=== PATIENT | female | born 1980 | race Caucasian/White ===

== ENCOUNTER 2017-01-15 08:10 | Emergency (ER) | payer OTHER ==
[~2017-01-15] VITALS: Ht 172.7 cm; Wt 110.4 kg
[~2017-01-15 08:10] MED LIST: ANT25 PO; HYDROXYCUT PO; MULT-506 PO
[2017-01-15 08:11] VITALS: TEMP 36.5; Ht 172.7 cm; Wt 110.4 kg
[2017-01-15] MEDS ORDERED: SODIUM CHLORIDE 0.9% 1000ML 1,000 ML IV STA (08:30)
[2017-01-15 08:40] LABS: BASO % 0.4 %; BASO ABS # 0.04 K/uL (0-0.2); COMPLETE YES; EOS % 1.3 %; HEMATOCRIT 39.8 % (37-47); IG% 0.5 %; LYMPH % 22.6 %; LYMPH ABS # 2.11 K/uL (1.2-3.4); MEAN CELL VOLUME 87.5 fL (80-100); MEAN CORPUSCULAR HEMOGLOBIN 28.4 pg (25-34); MEAN CORPUSCULAR HGB CONC 32.4 g/dl (32-36); MEAN PLATELET VOLUME 9.4 fL (7.4-10.4); MONO % 8.7 %; NEUT % 66.5 %; PLATELET COUNT 368 K/uL (130-400); RED BLOOD COUNT 4.55 M/uL (4.2-5.4); WHITE BLOOD COUNT 9.32 K/uL (4.8-10.8)
[2017-01-15 08:46] LABS: URINE APPEARANCE TURBID (CLEAR); URINE BILIRUBIN NEG (NEG); URINE COLOR DK YELLOW; URINE EPITHELIAL CELL AUTO >30 /lpf (0-5); URINE NITRITE NEG (NEG); URINE SPECIFIC GRAVITY 1.041 (1.000-1.030); UROBILINOGEN NEG (NEG)
[2017-01-15 08:56] LABS: MANUAL MICROSCOPIC REQUIRED? NO; REVIEW REQ? YES
[2017-01-15 08:58] LABS: BUN/CREATININE RATIO 10.5 (10-20); CALCIUM 8.5 mg/dl (8.5-10.1); CREATININE 0.76 mg/dl (0.60-1.20); POTASSIUM 3.7 mmol/L (3.5-5.1)
--- NOTE | 2017-01-15 09:58 | DIAGNOSTIC IMAGING REPORT ---
ABDOMINAL ULTRASOUND, RIGHT UPPER QUADRANT HISTORY: Generalized abdominal pain.. COMPARISON: None. FINDINGS: Pancreas: The head of the pancreas appears to be unremarkable. The body and tail are obscured by overlying bowel gas. Liver: Unremarkable. Gallbladder: The gallbladder is completely filled with sludge and small stones. Gallbladder wall is borderline thickened measuring up to 3 mm. CBD: 5 mm. Right kidney: No hydronephrosis. IMPRESSION: The gallbladder is completely filled with sludge and small stones. There is borderline gallbladder wall thickening. This could represent acute cholecystitis in the appropriate clinical setting. Electronically signed by: Parmjit Vazquez M.D. 01/15/2017 9:57 AM Dictated Date/Time: 01/15/2017 9:54 AM
--- NOTE | 2017-01-15 10:10 | EMERGENCY ROOM VISIT NOTE ---
History First contact with patient: 08:14 Chief Complaint: ABDOMINAL PAIN Stated Complaint: RIGHT UPPER QUAD PAIN-RADIATES TO BACK Nursing Triage Summary: pt reports having intermittent upper right quad pain last several months episode of pain awoke pt at 0400am pt tried antacid with minimal relief nausea, no emesis pt has had diarrhea with episodes but none today pt reports feeling bloated "I think Its my gallbladder" History of Present Illness The patient is a 36 year old female who presents to the Emergency Room with complaints of right upper abdominal pain that has been ongoing and intermittent for the past 6 months, but got worse since last night. She reports the pain is sharp and squeezing, radiates into her right upper back/shoulder blade area, with associated nausea but no vomiting. She states she took a Zantac and Tylenol as morning, which has somewhat alleviated her pain. She does note some loose stools over the past few weeks, no watery or foul-smelling diarrhea. She denies any fever/chills, chest pain, shortness of breath, dizziness or syncope, vomiting blood, bloody stools, urinary symptoms. She denies any previous history of gallbladder disease. Review of Systems GENERAL: Denies fevers, chills, malaise, fatigue, unintentional weight changes. HEENT: Denies dizziness, visual problems, hearing loss, tinnitus. Denies difficulty swallowing or oral lesions. PULMONARY: Denies cough, shortness of breath, sputum production or hemoptysis. CARDIOVASCULAR: Denies chest pain, palpitations, dyspnea on exertion, orthopnea or peripheral edema. GASTROINTESTINAL: + Abdominal pain, nausea, diarrhea. Denies constipation, vomiting. GENITOURINARY: Denies dysuria, frequency, urgency or nocturia. NEUROLOGIC: Denies history of epilepsy, CVA, TIA or chronic headaches. MUSCULOSKELETAL: Denies history of joint tenderness/swelling. SKIN: Denies rashes or lesions. PSYCHIATRIC: Denies history of depression or mental illness. ENDOCRINE: Denies history of diabetes, thyroid disorders, abnormal hair growth or sexual dysfunction. Past Medical/Surgical History Medical Problems: (1) No chronic problems Social History Smoking Status: Never Smoker Marital Status: Housing Status: lives with family Occupation Status: employed Current/Historical Medications Scheduled Multivitamin (Multivitamin), 1 TAB PO DAILY Allergies Coded Allergies: No Known Allergies (Unverified , 01/15/17) Physical Exam Vital Signs Date Time Temp Pulse Resp B/P Pulse Ox O2 Delivery O2 Flow Rate FiO2 01/15/17 12:09 57 18 139/85 95 Room Air 01/15/17 09:30 57 16 135/78 95 01/15/17 08:11 36.5 70 20 143/77 100 Room Air Physical Exam CONSTITUTIONAL: No acute distress. Well appearing and well nourished. Alert and oriented X 4 with normal affect. HEENT: Normocephalic, atraumatic. Pupils equal, round and reactive to light, EOMI. TMs normal. Pharynx normal. Moist mucous membranes. NECK: Supple, full active range of motion without discomfort. RESPIRATORY: Clear to auscultation bilaterally with no wheezing, crackles, rhonchi or stridor. Equal expansion bilaterally. CARDIOVASCULAR: Regular rate and rhythm with no murmurs, rubs or gallops. Normal peripheral perfusion. No edema. GASTROINTESTINAL: Soft, nondistended. Obese abdomen. Mild tenderness in the epigastric and right upper quadrant regions. Negative Shafer sign. Bowel sounds present in all quadrants. MUSCULOSKELETAL: Full range of motion of all joints without discomfort. INTEGUMENTARY: No rash or other significant dermatologic conditions noted. NEUROLOGIC: Cranial nerves II-XII grossly intact. No focal neurologic deficits noted. Medical Decision & Procedures ER Provider Diagnostic Interpretation: CHEST 2 VIEWS ROUTINE HISTORY: Upper quadrant abdominal pain. COMPARISON: None. FINDINGS: Linear densities within the right middle lobe consistent with scarring or subsegmental atelectasis. Otherwise, lungs are clear. No pleural effusions. No pneumothorax. The heart is normal in size. IMPRESSION: Right middle lobe scarring or atelectasis. Otherwise, no acute process within the chest. ----- ABDOMINAL ULTRASOUND, RIGHT UPPER QUADRANT HISTORY: Generalized abdominal pain.. COMPARISON: None. FINDINGS: Pancreas: The head of the pancreas appears to be unremarkable. The body and tail are obscured by overlying bowel gas. Liver: Unremarkable. Gallbladder: The gallbladder is completely filled with sludge and small stones. Gallbladder wall is borderline thickened measuring up to 3 mm. CBD: 5 mm. Right kidney: No hydronephrosis. IMPRESSION: The gallbladder is completely filled with sludge and small stones. There is borderline gallbladder wall thickening. This could represent acute cholecystitis in the appropriate clinical setting. Laboratory Results 01/15/17 08:30 Red Blood Count 4.55, Mean Corpuscular Volume 87.5, Mean Corpuscular Hemoglobin 28.4, Mean Corpuscular Hemoglobin Concent 32.4, Mean Platelet Volume 9.4, Neutrophils (%) (Auto) 66.5, Lymphocytes (%) (Auto) 22.6, Monocytes (%) (Auto) 8.7, Eosinophils (%) (Auto) 1.3, Basophils (%) (Auto) 0.4, Neutrophils # (Auto) 6.19, Lymphocytes # (Auto) 2.11, Monocytes # (Auto) 0.81, Eosinophils # (Auto) 0.12, Basophils # (Auto) 0.04 01/15/17 08:30 Test 01/15/17 08:20 01/15/17 08:30 Urine Color DK YELLOW Urine Appearance TURBID (CLEAR) Urine pH 5.0 (4.5-7.5) Urine Specific [place] 1.041 (1.000-1.030) Urine Protein NEG (NEG) Urine Glucose (UA) NEG (NEG) Urine Ketones NEG (NEG) Urine Occult Blood 1+ (NEG) Urine Nitrite NEG (NEG) Urine Bilirubin NEG (NEG) Urine Urobilinogen NEG (NEG) Urine Leukocyte Esterase NEG (NEG) Urine WBC (Auto) 1-5 /hpf (0-5) Urine RBC (Auto) 0-4 /hpf (0-4) Urine Hyaline Casts (Auto) 1-5 /lpf (0-5) Urine Epithelial Cells (Auto) >30 /lpf (0-5) Urine Bacteria (Auto) 1+ (NEG) Urine Crystals AMORPHOUS SEDIMENT (NONE Urine Test NEG (NEG) White Blood Count 9.32 K/uL (4.8-10.8) Red Blood Count 4.55 M/uL (4.2-5.4) Hemoglobin 12.9 g/dL (12.0-16.0) Hematocrit 39.8 % (37-47) Mean Corpuscular Volume 87.5 fL (80-100) Mean Corpuscular Hemoglobin 28.4 pg (25-34) Mean Corpuscular Hemoglobin Concent 32.4 g/dl (32-36) Platelet Count 368 K/uL (130-400) Mean Platelet Volume 9.4 fL (7.4-10.4) Neutrophils (%) (Auto) 66.5 % Lymphocytes (%) (Auto) 22.6 % Monocytes (%) (Auto) 8.7 % Eosinophils (%) (Auto) 1.3 % Basophils (%) (Auto) 0.4 % Neutrophils # (Auto) 6.19 K/uL (1.4-6.5) Lymphocytes # (Auto) 2.11 K/uL (1.2-3.4) Monocytes # (Auto) 0.81 K/uL (0.11-0.59) Eosinophils # (Auto) 0.12 K/uL (0-0.5) Basophils # (Auto) 0.04 K/uL (0-0.2) RDW Standard Deviation 44.0 fL (36.4-46.3) RDW Coefficient of Variation 13.7 % (11.5-14.5) Immature Granulocyte % (Auto) 0.5 % Immature Granulocyte # (Auto) 0.05 K/uL (0.00-0.02) Anion Gap 5.0 mmol/L (3-11) Est Creatinine Clear Calc Drug Dose 134.5 ml/min Estimated GFR () 117.8 Estimated GFR (Non- 101.6 BUN/Creatinine Ratio 10.5 (10-20) Calcium Level 8.5 mg/dl (8.5-10.1) Total Bilirubin 0.4 mg/dl (0.2-1) Direct Bilirubin 0.1 mg/dl (0-0.2) Aspartate Amino Transf (AST/SGOT) 27 U/L (15-37) Alanine Aminotransferase (ALT/SGPT) 58 U/L (12-78) Alkaline Phosphatase 91 U/L (45-117) Total Protein 7.7 gm/dl (6.4-8.2) Albumin 3.7 gm/dl (3.4-5.0) Lipase 158 U/L (73-393) Medications Administered Medications (Trade) Dose Ordered Sig/Camila Route Start Time Stop Time Status Last Admin Dose Admin Sodium Chloride (Nss 1000ml) 1,000 ml @ 999 mls/hr Q1H1M STAT IV 01/15/17 08:30 01/15/17 09:30 DC 01/15/17 09:29 999 MLS/HR Medical Decision CC: Patient presenting with complaint of right upper quadrant pain. Interpretation of Labs: Unremarkable, no leukocytosis, normal renal function, normal liver enzymes, no significant electrolyte abnormalities. Differential Diagnosis: Includes, but not limited to gastritis, GERD, cholecystitis, cholelithiasis, pancreatitis. Summary: Patient was evaluated at bedside, history of physical exam performed. She is alert and pleasant, no acute distress, well-hydrated. She describes right upper quadrant and epigastric pain that radiates into her right shoulder blade area nausea. She does have mild tenderness with palpation in the epigastric right upper quadrant abdomen but no positive Shafer sign. Orders were placed at bedside for labs, urinalysis, IV fluids, ultrasound to evaluate for gallbladder disease. Patient was offered something for pain, however she states her pain is currently well controlled and declines any pain medications. Patient discussed with Dr. Chand, who agrees with my assessment and plan. Right upper quadrant ultrasound does show significant gallbladder sludge with stones and mild wall thickening, however patient's clinical condition and lab findings do not support acute cholecystitis at this time. Patient reassessed multiple times throughout ED stay, her pain remained well controlled and vitals stable. Patient was instructed to follow-up with her PCP for general surgery referral to further evaluate her gallbladder. She verbalized understanding and is agreeable to discharge. Impression Primary Impression: Gall bladder disease Departure Information Dispostion Home / Self-Care Condition GOOD Referrals Lorenzo Ortiz M.D. (PCP) Patient Instructions ED Gallbladder Infec [facility], [facility] Additional Instructions Follow-up with your PCP. Call today or tomorrow to arrange a follow-up appointment. You should discuss with them about being referred to a general surgeon to discuss management of your gallbladder disease. You may continue to take Tylenol as needed for pain. Please return to the ER for worsening symptoms, including severe abdominal pain , persistent vomiting especially vomiting blood or bile, fevers/chills/feeling ill, or any other concerns.
--- NOTE | 2017-01-15 10:23 | DIAGNOSTIC IMAGING REPORT ---
CHEST 2 VIEWS ROUTINE HISTORY: Upper quadrant abdominal pain. COMPARISON: None. FINDINGS: Linear densities within the right middle lobe consistent with scarring or subsegmental atelectasis. Otherwise, lungs are clear. No pleural effusions. No pneumothorax. The heart is normal in size. IMPRESSION: Right middle lobe scarring or atelectasis. Otherwise, no acute process within the chest. Electronically signed by: Parmjit Vazquez M.D. 01/15/2017 10:22 AM Dictated Date/Time: 01/15/2017 10:20 AM
[2017-01-15 12:09] VITALS: BP 139/85; PULSE 57; O2SAT 95
== END 2017-01-15 12:35 | disposition home or self-care (01) ==
LOC: C.EDB 08:11 → C.EDA 12:35
DX: K82.9 Disease of gallbladder, unspecified (principal)

== ENCOUNTER 2017-04-20 15:41 | Emergency (ER) | payer OTHER ==
[~2017-04-20] VITALS: Ht 174 cm; Wt 108.0 kg
[~2017-04-20 15:41] MED LIST changes: -ANT25 PO; -HYDROXYCUT PO
[2017-04-20 15:44] VITALS: TEMP 36.8; Ht 174 cm; Wt 108.0 kg
[2017-04-20] MEDS ORDERED: CEFTRIAXONE SOD INJ 1 GM ADDVIAL IV STA (17:34)
[2017-04-20] MEDS ORDERED: IBUP-1050 PO (17:45)
[2017-04-20 18:15] LABS: BASO % 0.1 %; BASO ABS # 0.02 K/uL (0-0.2); COMPLETE YES; EOS % 0.3 %; HEMATOCRIT 35.1 % (37-47); IG% 0.4 %; LYMPH % 12.3 %; LYMPH ABS # 1.95 K/uL (1.2-3.4); MEAN CELL VOLUME 84.6 fL (80-100); MEAN CORPUSCULAR HEMOGLOBIN 28.9 pg (25-34); MEAN CORPUSCULAR HGB CONC 34.2 g/dl (32-36); MEAN PLATELET VOLUME 9.6 fL (7.4-10.4); MONO % 11.1 %; NEUT % 75.8 %; PLATELET COUNT 290 K/uL (130-400); RED BLOOD COUNT 4.15 M/uL (4.2-5.4); WHITE BLOOD COUNT 15.83 K/uL (4.8-10.8)
--- NOTE | 2017-04-20 18:21 | DIAGNOSTIC IMAGING REPORT ---
LEFT KNEE 2 VIEWS HISTORY: Left knee pain. fall on gravel, laceration repair 2 days ago, cellulitis COMPARISON: None. FINDINGS: There is no fracture or dislocation. No knee effusion. Soft tissue laceration within the infrapatellar location. Anterior soft tissue swelling within the knee and proximal lower leg No radiopaque foreign bodies. IMPRESSION: No fractures. Infrapatellar soft tissue laceration. Electronically signed by: Parmjit Vazquez M.D. 04/20/2017 6:20 PM Dictated Date/Time: 04/20/2017 6:18 PM
[2017-04-20 18:22] LABS: BUN/CREATININE RATIO 10.7 (10-20); CALCIUM 8.5 mg/dl (8.5-10.1); CREATININE 0.86 mg/dl (0.60-1.20); POTASSIUM 3.5 mmol/L (3.5-5.1)
[2017-04-20] MEDS ORDERED: SULF800T23 PO (20:22)
[2017-04-20] MEDS ORDERED: CEPH500C PO (20:22)
[2017-04-20] MEDS ORDERED: NORCO 5/325MG HOME PACK PO ONE (20:30)
[2017-04-20] MEDS ORDERED: SEPTRA DS HOME PACK 1 EA VIAL PO ONE (20:30)
[2017-04-20 20:45] VITALS: BP 137/64; PULSE 91; O2SAT 99
--- NOTE | 2017-04-20 21:06 | EMERGENCY ROOM VISIT NOTE ---
History Report prepared by Demi: Nasir Enriquez Under the Supervision of: Dr. Weston Boone M.D. First contact with patient: 17:14 Chief Complaint: WOUND INFECTION Stated Complaint: CELLULITIS OF THE L KNEE, LACERATION Nursing Triage Summary: pt fell and injured L knee, had sutures placed last thursday, pt thinks it is infected History of Present Illness The patient is a 36 year old female who presents to the Emergency Room with complaints of a worsening left knee wound infection beginning a few days ago. The patient fell and cut her knee 8 days ago at a concert, and required sutures to repair the laceration. She feels that she likely cut her leg on a broken bottle or a rock, which was covered in mud. She also cut her left ankle during this fall, but it did not require sutures. The patient states that the wound has begun to drain some red-colored drainage, and feels warm to the touch. She was started on Keflex yesterday. Pt denies LOC, headache, fevers, chills, diaphoresis, visual changes, neck pain, chest pain, breathing difficulties, nausea, vomiting, abdominal pain, back pain, melena, hematochezia, urinary symptoms, numbness, weakness, lymphadenopathy, or other complaints. She has no history of skin infections. Source of History: patient Onset: a few days ago Position: knee (left) Quality: other (wound infection) Timing: worsening Review of Systems See HPI for pertinent positives and negatives. A total of ten systems were reviewed and were otherwise negative. Past Medical & Surgical Medical Problems: (1) Gall bladder disease (2) No chronic problems (3) Vertigo Surgical Problems: (1) Jonancy teeth extracted Family History No pertinent family history stated. Social History Smoking Status: Never Smoker Marital Status: Housing Status: lives with family Occupation Status: employed Current/Historical Medications Scheduled Cephalexin Monohydrate (Keflex), 500 MG PO QID Multivitamin (Multivitamin), 1 TAB PO DAILY Sulfa/Trimethoprim (Bactrim Ds 800MG/160MG), 1 TAB PO BID Miscellaneous Medications Ibuprofen (Advil), 200 MG PO Allergies Coded Allergies: No Known Allergies (Unverified , 04/20/17) Physical Exam Vital Signs Date Time Temp Pulse Resp B/P (MAP) Pulse Ox O2 Delivery O2 Flow Rate FiO2 04/20/17 20:45 91 18 137/64 99 04/20/17 17:58 95 18 121/76 96 Room Air 04/20/17 15:44 36.8 105 18 128/89 100 Room Air Physical Exam GENERAL: Awake, alert, well-appearing, in no distress HENT: Normocephalic, atraumatic. Oropharynx unremarkable. EYES: Normal conjunctiva. Sclera non-icteric. NECK: Supple. No nuchal rigidity. FROM. No JVD. RESPIRATORY: Clear to auscultation. CARDIAC: Regular rate, normal rhythm. Extremities warm and well perfused. Pulses equal. ABDOMEN: Soft, non-distended. No tenderness to palpation. No rebound or guarding. No masses. MUSCULOSKELETAL: Sutured laceration to the left knee. + warmth. 1 suture removed from the middle aspect. Minimal pressure applied and Cloudy serosanguineous fluid expressed. Abrasion to the left ankle and top of the foot with some bruising to the left first MTP joint. The patient is able to bear weight without difficulty. Good range of motion. NEURO: Normal sensorium. No sensory or motor deficits noted. SKIN: No rash or jaundice noted. Medical Decision & Procedures ER Provider Diagnostic Interpretation: X-ray: Per my interpretation, radiologist review. LEFT KNEE 2 VIEWS FINDINGS: There is no fracture or dislocation. No knee effusion. Soft tissue laceration within the infrapatellar location. Anterior soft tissue swelling within the knee and proximal lower leg No radiopaque foreign bodies. IMPRESSION: No fractures. Infrapatellar soft tissue laceration. Electronically signed by: Parmjit Vazquez M.D. Laboratory Results 04/20/17 17:50 Red Blood Count 4.15, Mean Corpuscular Volume 84.6, Mean Corpuscular Hemoglobin 28.9, Mean Corpuscular Hemoglobin Concent 34.2, Mean Platelet Volume 9.6, Neutrophils (%) (Auto) 75.8, Lymphocytes (%) (Auto) 12.3, Monocytes (%) (Auto) 11.1, Eosinophils (%) (Auto) 0.3, Basophils (%) (Auto) 0.1, Neutrophils # (Auto ) 11.98, Lymphocytes # (Auto) 1.95, Monocytes # (Auto) 1.76, Eosinophils # (Auto ) 0.05, Basophils # (Auto) 0.02 04/20/17 17:50 Test 04/20/17 17:50 White Blood Count 15.83 K/uL (4.8-10.8) Red Blood Count 4.15 M/uL (4.2-5.4) Hemoglobin 12.0 g/dL (12.0-16.0) Hematocrit 35.1 % (37-47) Mean Corpuscular Volume 84.6 fL (80-100) Mean Corpuscular Hemoglobin 28.9 pg (25-34) Mean Corpuscular Hemoglobin Concent 34.2 g/dl (32-36) Platelet Count 290 K/uL (130-400) Mean Platelet Volume 9.6 fL (7.4-10.4) Neutrophils (%) (Auto) 75.8 % Lymphocytes (%) (Auto) 12.3 % Monocytes (%) (Auto) 11.1 % Eosinophils (%) (Auto) 0.3 % Basophils (%) (Auto) 0.1 % Neutrophils # (Auto) 11.98 K/uL (1.4-6.5) Lymphocytes # (Auto) 1.95 K/uL (1.2-3.4) Monocytes # (Auto) 1.76 K/uL (0.11-0.59) Eosinophils # (Auto) 0.05 K/uL (0-0.5) Basophils # (Auto) 0.02 K/uL (0-0.2) RDW Standard Deviation 42.2 fL (36.4-46.3) RDW Coefficient of Variation 13.8 % (11.5-14.5) Immature Granulocyte % (Auto) 0.4 % Immature Granulocyte # (Auto) 0.07 K/uL (0.00-0.02) Anion Gap 8.0 mmol/L (3-11) Est Creatinine Clear Calc Drug Dose 118.5 ml/min Estimated GFR () 101.4 Estimated GFR (Non- 87.5 BUN/Creatinine Ratio 10.7 (10-20) Calcium Level 8.5 mg/dl (8.5-10.1) Laboratory results reviewed by me Medications Administered Medications (Trade) Dose Ordered Sig/Camila Route Start Time Stop Time Status Last Admin Dose Admin Ceftriaxone Sodium (Rocephin Inj) 1 gm NOW STAT IV 04/20/17 17:34 8/21/17 17:35 DC 04/20/17 17:55 1 GM Trimethoprim/ Sulfamethoxazole (Sulfameth/ Trimeth Ds 800/ 160MG Home Pack) 1 homepack UD ONCE PO 04/20/17 20:30 04/20/17 20:31 DC 04/20/17 20:30 1 HOMEPACK Acetaminophen/ Hydrocodone Bitart ([place] 5/325mg Home Pack) 1 homepack UD ONCE PO 04/20/17 20:30 04/20/17 20:31 DC 04/20/17 20:30 1 HOMEPACK ED Course 1718: The patient was evaluated in room B8. A complete history and physical exam was performed. 1733: Ordered Rocephin Inj 1 gm IV. 2029: Ordered [place] 5/325 mg homepack PO. Sulfameth/Trimeth Ds 800/160 mg home pack PO. I reevaluated the patient. Discussed results and discharge instructions : she verbalized understanding and agreement. The patient is ready for discharge. Medical Decision Triage Nursing notes reviewed and agree them. Additional history obtained from the family. The patient's history was concerning for swelling and redness of the skin. Differential diagnosis: Etiologies such as cellulitis, necrotizing fasciitis, abscess, MRSA infection, dermatitis, as well as others were entertained.. Physical examination: The physical examination was consistent with cellulitis. The wound was still sutured however there was some drainage. ER treatment provided: A single suture was removed and cloudy serosanguineous fluid was drained. This was concerning for early infection. There is cellulitis present. Oral Redby IV Rocephin Bacitracin and wound care On reassessment the patient felt better. Diagnostics interpreted by me: The labs revealed an elevated leukocytosis. Wound culture sent. Imaging studies: X-rays as above This appears to be isolated cellulitis from a wound infection. The patient was started on IV Rocephin. Bactrim will be added for additional coverage. If she does not improve she will have to come back to the emergency department and may need a surgical wash out. This was superficial. There was no evidence of joint space involvement. No fractures were seen. By the evaluation outlined above emergent etiologies such as abscess, necrotizing fasciitis, DVT, as well as others were deemed relatively unlikely. The patient was informed about the findings as listed above. All questions were answered and she was pleased with the treatment. Return instructions were outlined and the patient was discharged in stable condition. Outpatient prescription management: Redby home pack Bactrim Keflex Referral: The patient was referred back to her primary care physician for follow-up in 2 to 3 days for a recheck of the current condition. Medication Reconcilliation Current Medication List: was personally reviewed by me Blood Pressure Screening Patient's blood pressure: Normal blood pressure Blood pressure disposition: Did not require urgent referral Impression Primary Impression: Cellulitis of left knee Scribe Attestation The scribe's documentation has been prepared under my direction and personally reviewed by me in its entirety. I confirm that the note above accurately reflects all work, treatment, procedures, and medical decision making performed by me. Departure Information Dispostion Home / Self-Care Prescriptions Cephalexin Monohydrate (Keflex) 500 Mg Cap 500 MG PO QID, #19 CAP Prov: Weston Boone MD 04/20/17 Sulfa/Trimethoprim (Bactrim Ds 800MG/160MG) Tab 1 TAB PO BID, #18 TAB Prov: Weston Boone MD 04/20/17 Referrals Lorenzo Ortiz M.D. (PCP) Forms HOME CARE DOCUMENTATION FORM, IMPORTANT VISIT INFORMATION, WORK / SCHOOL INSTRUCTIONS Patient Instructions [facility] Additional Instructions CELLULITIS INSTRUCTIONS: Hydrocodone/acetaminophen 5/325mg: Take 1-2 pills every 6 hours as needed for pain. Avoid additional Acetaminophen/Tylenol, alcohol, operating machinery or dangerous equipment, working on ladders or roofs, DRIVING, or situations where being under the influence may be dangerous. Cephalexin(Keflex) 500mg: Take one pill four times daily for 10 days for your skin infection. All antibiotics can cause diarrhea. If this occurs and you feel worse or it does not resolve in 1-2 days follow up with your doctor or return to the Emergency Department as this could be signs of serious underlying problems. Any medication can cause an allergic reaction, stop the pills immediately and return to the ER for rash, hives, breathing difficulties, or swelling. Trimethoprim-Sulfamethoxazole(Bactrim DS): Take one pill twice daily for 10 days for your skin infection. All antibiotics can cause diarrhea. If this occurs and you feel worse or it does not resolve in 1-2 days follow up with your doctor or return to the Emergency Department as this could be signs of serious underlying problems. Any medication can cause an allergic reaction, stop the pills immediately and return to the ER for rash, hives, breathing difficulties, or swelling. Ibuprofen(Motrin, Advil) may be used for fever or pain. Use 600mg every six hours as needed. Take with food. Avoid using more than 2400mg in a 24 hour period. Do not use 2400mg per day for more than three consecutive days without physician direction. Prolonged inappropriate use can lead to stomach upset or ulcers. (AND/OR) Acetaminophen(Tylenol) may be used for fever or pain. Use 1000mg every six hours as needed. Avoid using more than 4000mg in a 24 hour period. Warm compresses to the affected area 4 times daily for 15-20 minutes. Rest and drink plenty of fluids. Continue current medications. Return to the ER for severe pain, persistent fevers, spreading redness, or any worsening of your condition. Follow up with your primary physician within 2-3 days for a recheck of the current condition.
== END 2017-04-20 20:46 | disposition home or self-care (01) ==
LOC: C.EDB 15:42
DX: L03.116 Cellulitis of left lower limb (principal); K82.9 Disease of gallbladder, unspecified

== ENCOUNTER 2018-11-04 10:50 | Inpatient (IN) ==
[2018-11-04] MEDS ORDERED: ONDANSETRON INJ 2 MG/ML 2 ML VIAL IV STA (11:10)
[2018-11-04] MEDS ORDERED: SODIUM CHLORIDE 0.9% 1000ML 1,000 ML IV SCH (11:15)
[2018-11-04 11:37] LABS: Basophils # (auto) 0.02 K/uL (0-0.2); Basophils % (auto) 0.1 %; Eosinophils # (auto) 0.05 K/uL (0-0.5); Eosinophils % (auto) 0.3 %; Hematocrit (blood only) 38.2 % (37-47); Hemoglobin 12.2 g/dL (12.0-16.0); Immature Granulocytes # (auto) 0.12 K/uL (0.00-0.02); Immature Granulocytes % (auto) 0.7 %; Lymphocytes # (auto) 2.24 K/uL (1.2-3.4); Lymphocytes % (auto) 12.6 %; Mean Corpuscular Hgb Conc 31.9 g/dL (32-36); Mean Corpuscular Volume 81.4 fL (80-100); Mean Platelet Volume 9.3 fL (7.4-10.4); Monocytes # (auto) 1.84 K/uL (0.11-0.59); Monocytes % (auto) 10.3 %; Neutrophils # (auto) 13.57 K/uL (1.4-6.5); Platelet Count 368 K/uL (130-400); RDW Coefficient of Variation 14.7 % (11.5-14.5); RDW Standard Deviation 43.6 fL (36.4-46.3); Red Blood Count 4.69 M/uL (4.2-5.4); White Blood Count 17.84 K/uL (4.8-10.8)
[2018-11-04 11:51] LABS: Appearance Urine Cloudy (Clear); Bacteria Urine Automated 1+ (Negative); Bilirubin Urine Negative (Negative); Blood Urine 3+ (Negative); Color Urine Dark Yellow; Epithelial Cell Urine Auto >30 /lpf (0-5); Glucose Urine UA Negative (Negative); Ketones Urine Trace (Negative); Leukocyte Esterase Urine 1+ (Negative); Nitrite Urine Negative (Negative); RBC Urine Automated >30 /hpf (0-4); Specific Gravity Urine 1.024 (1.000-1.030); Urobilinogen Urine Negative (Negative); pH Urine 7.5 (4.5-7.5)
[2018-11-04 11:54] LABS: Albumin Level 3.4 gm/dl (3.4-5.0); BUN Creatinine Ratio 17.7 (10-20); Calcium 9.2 mg/dl (8.5-10.1); Creatinine Clr Calc Pharmacy 127.8 ml/min; Est GFR (African American) 112.6; Est GFR (Non-African American) 97.1; Potassium 3.2 mmol/L (3.5-5.1)
[2018-11-04 11:57] LABS: Albumin Globulin Ratio 0.9 (0.9-2); Bilirubin,Total 0.8 mg/dl (0.2-1); Globulin 3.7 gm/dl (2.5-4.0); Total Protein 7.1 gm/dl (6.4-8.2)
[2018-11-04 12:05] LABS: Protein Urine Negative (Negative)
[2018-11-04 12:29] LABS: Mucus Urine Present (None Prsent)
--- NOTE | 2018-11-04 12:52 | XRay Report ---
PA CHEST WITH ABDOMINAL SERIES CLINICAL HISTORY: Vomiting. FINDINGS: A PA chest radiograph is compared to study dated 10/18/2018. The cardiomediastinal silhouette is unrem arkable. There is bibasilar scarring/atelectasis and chronic elevation of the right hemidiaphragm. No airspace consolidation or pleural effusion is identified. No pneumothorax is seen. The bony thorax i s grossly intact. Supine and erect abdominal radiographs are compared to study dated 10/22/2018 and correlated with abdo sandy CT dated 10/20/2018. Cholecystectomy clips are seen in the right upper quadrant. Findings are co nsistent with a small bowel obstruction. Distended and gas-filled loops of proximal small bowel measu re up to 5 cm. Air-fluid levels are noted on the upright view. No evidence of intraperitoneal free ai r is seen. There are no abnormal abdominal calcifications. The lumbosacral spine and bony pelvis appe ar intact. IMPRESSION: 1. No active disease in the chest. 2. Findings are consistent with small bowel obstruction. Electronically signed by: Maksim Mancera M.D. 11/04/2018 12:51 PM
--- NOTE | 2018-11-04 13:29 | Surgery Consultation ---
Date of Consultation November 04, 2018 Assessment & Plan (1) Small bowel obstruction: PSBO, being evaluated for possible IBD NG ordered, exam benign would consult GI don't see a benefit to CT at this time, consider in a few days if not improving Supervising Physician Co-Signing Physician Notes Patient seen and examined, past imaging and labs reviewed, agree with above. 38 y/o female admitted a few weeks ago with psbo, believed to be secondary to IBD as scan showed some terminal ileitis. Placed on steroids, d/c'ed. Pain mildly improved at d/c, but returned. Nausea and vomiting, epigastric pain. abd soft, mildly ttp in epigastrium, no peritonitis. wbc 17 on prednisone. KUB shows persistent obstruction. Will obtain CT, admit to medicine, surgery will follow. History of Present Illness History of Present Illness 38 y/o female we saw 2 weeks ago during admission for SBO, CT with TI thickening ? IBD was discharged home after several days of conservative tx, NGT and IV steroids. Was doing ok at home, had been on mostly liquids, recently started eating more solid food. Had discomfort yesterday, developed N/V overnight. Continues on prednisone 80 mg daily and was scheduled for colonoscopy next week. Allergies Allergy/AdvReac Type Severity Reaction Status Date / Time No Known Allergies Allergy Verified 11/04/18 11:43 Home Medications Home Medications Medication Instructions Recorded Confirmed Type multivitamin 1 tab PO QAM 10/18/18 11/04/18 History ciprofloxacin HCl 500 mg PO BID #30 tab 10/23/18 11/04/18 Rx metronidazole [Flagyl] 500 mg PO BID #10 tab 10/23/18 11/04/18 Rx acetaminophen [Tylenol Extra 1,000 mg PO Q6H PRN 11/04/18 11/04/18 History Strength] prednisone 80 mg PO QAM 11/04/18 11/04/18 History Patient History Medical History Cellulitis of left knee (Resolved) Gall bladder disease (Resolved) Vertigo (Resolved) Surgical History History of cholecystectomy (Chronic) [place] teeth extracted (Resolved) Social History Preferred Language: Lithuanian Communication Ability: Effective Tanning Consultant Required: No Beliefs That Will Affect Care: None Current Living Situation: Spouse and Family Other Information That Helps Us Care for You: No Feels Safe at Home: Yes Safety Concerns: Feels Safe At This Time Smoking Status: Never smoker Hx Alcohol Use: Yes Hx Substance Use: No Review of Systems Constitutional: no fever and no chills Gastrointestinal: + abdominal pain, + bloating, + nausea and + vomiting Physical Exam Vital Signs (Past 24 Hours): Last Vital Signs Temp 36.6 C 11/04/18 10:53 Pulse 65 11/04/18 12:18 Resp 20 11/04/18 12:18 BP 115/73 11/04/18 12:18 Pulse Ox 100 11/04/18 12:18 Gastrointestinal (Abdomen): Inspection/Auscultation: + abdomen distended Percussion/Palpation: abdomen nontender
--- NOTE | 2018-11-04 14:01 | History & Physical Report ---
Date of Service November 04, 2018 Assessment & Plan (1) Small bowel obstruction: (2) Abdominal pain: Recent hospitalization for SBO, abdominal pain resolved with conservative treatment. Suspicion for possible IBD. Pt on cipro, flagyl, prednisone. To have GI follow up with colonoscopy on 11/11/18. Started with abdominal pain, N/V last night, reported decreased BMs In ER afebrile, P: 118 down to 65, R: 16, BP: 113/76. WBC: 17. Pt has been on prednisone ABD XRAY:. Findings are consistent with small bowel obstruction. -IV flagyl, cipro while npo -change prednisone to solumedrol while npo -NG tube -NPO -IVF -general surgery consult -GI consult -CBC, CMP in am (3) Hypokalemia: K: 3.2. Probable secondary to vomiting -replace and monitor DVT Prophylaxis -Low risk - ambulate Full Code Follows with Dr Vasquez for routine care Pt was seen with Dr Matthews. See addendum History of Present Illness Chief Complaint: Abdominal pain Primary Care Provider: Lorenzo Ortiz Pt is 38 y/o F with PMH daily loose stools for past year presented to ER with c/o abdominal pain started last night. Pt with recent hospital admission on 10/19/18-10/23/18 for SBO and with suspicion for possible IBD. SBO resolved conservative treatment and pt was placed on cipro until GI follow up and flagyl x 14 days. Was also on solumedrol which was transitioned to prednisone. Pt was schedule for outpatient colonoscopy on 11/11/18. States since discharge has been having intermittent cramping abdominal pain. Last night started with increased abdominal pain, nausea and vomiting x 4 times, last being this morning around 10am. States was having loose BMs twice daily and since discharge having BM every couple of days and still loose. Denies fever, diaphoresis, hematemesis, melena, hematochezia, SMITH, dizziness, syncope, vision changes, neck pain, CP, SOB, orthopnea, palpitations, cough, sore throat, choking, otalgia, rhinorrhea, paresthesias, weakness, extremity weakness, extremity edema, rashes, urinary symptoms. Allergies Allergy/AdvReac Type Severity Reaction Status Date / Time No Known Allergies Allergy Verified 11/04/18 11:43 Home Medications Home Medications Medication Instructions Recorded Confirmed Type multivitamin 1 tab PO QAM 10/18/18 11/04/18 History ciprofloxacin HCl 500 mg PO BID #30 tab 10/23/18 11/04/18 Rx metronidazole [Flagyl] 500 mg PO BID #10 tab 10/23/18 11/04/18 Rx acetaminophen [Tylenol Extra 1,000 mg PO Q6H PRN 11/04/18 11/04/18 History Strength] prednisone 80 mg PO QAM 11/04/18 11/04/18 History Past Med/Surg History Medical History Cellulitis of left knee (Resolved) Gall bladder disease (Resolved) Vertigo (Resolved) Surgical History History of cholecystectomy (Chronic) [place] teeth extracted (Resolved) Family History Other CAD (coronary artery disease) HTN (hypertension) Lung cancer Pancreatic cancer Social History Preferred Language: Sinhala Communication Ability: Effective Inspector Material Disposition Required: No Beliefs That Will Affect Care: None Current Living Situation: Spouse and Family Other Information That Helps Us Care for You: No Feels Safe at Home: Yes Safety Concerns: Feels Safe At This Time Smoking Status: Never smoker Hx Alcohol Use: Yes Hx Substance Use: No Review of Systems All systems reviewed & are unremarkable except as noted in HPI & below Physical Exam Vital Signs (Past 24 Hours): Last Vital Signs Temp 36.6 C 11/04/18 10:53 Pulse 78 11/04/18 13:41 Resp 20 11/04/18 13:41 BP 137/89 11/04/18 13:41 Pulse Ox 98 11/04/18 13:41 Physical Exam: General: no distress, obese Head: normocephalic, atraumatic Eyes: EOM's intact, conjunctiva non-injected, anicteric ENT: normal inspection external ears, nose, mucous membranes moist Neck: supple, trachea midline Lungs: clear, no respiratory distress, no wheezing/rhonchi/rales CV: RRR, no murmur, no pretibial edema Abd: hypoactive BS, soft, slight diffuse tenderness to palpation Ext: no cyanosis, no calf tenderness Neuro: A&O x 3, no focal deficits noted, normal affect Skin: warm, dry Results & Data Laboratory Results Short CBC 11/04/18 Range/Units 11:30 WBC 17.84 H (4.8-10.8) K/uL Hgb 12.2 (12.0-16.0) g/dL Hct 38.2 (37-47) % Plt Count 368 (130-400) K/uL BMP 11/04/18 11:30 Sodium 140 Potassium 3.2 L Chloride 100 Carbon Dioxide 31 BUN 14 Creatinine 0.78 Glucose 105 H Calcium 9.2 Liver Function 11/04/18 Range/Units 11:30 Total Bilirubin 0.8 (0.2-1) mg/dl AST 19 (15-37) U/L ALT 36 (12-78) U/L Alkaline Phosphatase 63 (45-117) U/L Albumin 3.4 (3.4-5.0) gm/dl Urine 11/04/18 Range/Units 11:35 Urine Color Dark Yellow Urine Appearance Cloudy H (Clear) Urine pH 7.5 (4.5-7.5) Ur Specific [place] 1.024 (1.000-1.030) Urine Protein Negative (Negative) Urine Glucose (UA) Negative (Negative) Diagnostic Findings CXR/ABD XRAY: IMPRESSION: 1. No active disease in the chest. 2. Findings are consistent with small bowel obstruction. Supervising Physician Co-Signing Physician Notes Patient is a 38-year-old female with history of chronic diarrhea, possible Crohn's disease presents with history of abdominal pain since 1 day duration. Reports associated nausea and vomiting and ongoing diarrhea. Abdominal x-ray showed findings suggestive of small bowel obstruction. Surgery evaluated the patient while in ED. On exam patient is obese, no apparent distress, lungs are clear to auscultation, S1-S2, no murmur, abdomen soft,+ tenderness upper quadrants, no guarding or rigidity, decreased bowel sounds, alert awake and oriented, no focal deficits, no pedal edema. Patient is admitted for management of small bowel obstruction. NG tube, IV fluids, n.p.o., pain control, general surgery consulted. Continue steroids and antibiotics for ongoing chronic diarrhea possibly secondary to Crohn's disease. Patient will eventually need colonoscopy. I personally reviewed the record. Patient is interviewed and examined at bedside. Patient's care is coordinated with Naye Webb. Please refer to the documentation above for details of patient's presentation and for discussion of other issues.
[2018-11-04] MEDS ORDERED: LORazepam 2 MG/4 ML VIAL ONE (15:11)
[2018-11-04] MEDS ORDERED: ONDANSETRON INJ 2 MG/ML 2 ML VIAL ONE (15:11)
--- NOTE | 2018-11-04 15:54 | XRay Report ---
XR KUB CLINICAL HISTORY: 38 years-old Female presenting with NG placement. TECHNIQUE: Single supine view of the abdomen was obtained. COMPARISON: 11/04/2018 at 12:[address] from 10/20/2018. FINDINGS: Nasogastric tube terminates in the body the stomach with sidehole at the level of the gastroesophagea l junction. Cholecystectomy clips noted. Mild gaseous distention of a loop of small bowel in the left mid abdomen with an apparent diameter of over 4 cm though this is likely affected by magnification. No gross pneumoperitoneum. Allowing for bowel gas and stool, no calcifications to suggest nephrolithiasis. Osseous structures normal. Lung bases clear. IMPRESSION: 1. Nasogastric tube terminates in the body the stomach though the sidehole is at the gastroesophagea l junction; advancement recommended. 2. Small bowel distention concerning for obstruction. Electronically signed by: Horace Gay M.D. 11/04/2018 3:52 PM
[2018-11-04] MEDS ORDERED: ONDANSETRON INJ 2 MG/ML 2 ML VIAL IV PRN (16:26)
[2018-11-04] MEDS: NSS + 20MEQ KCL 20 MEQ/1,000 ML BAG IV SCH (17:05)
--- NOTE | 2018-11-04 17:07 | Emergency Department Note ---
Entered by Taye Rosario acting as a scribe for Guzman Joya MD History of Present Illness General Chief complaint: Abdominal Pain Stated complaint: SEVERE ABD PAIN AND VOMITING Source: patient Limitations: no limitations History of Present Illness Provider complaint: ABD Pain Onset (ago): hour(s) (last night) Location: abdomen Maximum Pain Intensity: 9 Quality: + sharp Associated symptoms: + other (constipation); no chest pain Treatments prior to arrival: none The patient is a 38 year old female who presents to the Emergency Room with complaints of constant abdominal pain that began last night. The patient states that she was admitted to the Hospital on October 20, and discharged October 23, 12 days ago for colitis and small bowel obstruction. Last night she developed a "sharp pain" in her upper abdomen and was vomiting all night. She also describes a "tearing" pain in her upper abdomen. The patient adds that she has not had a normal bowel movement in several days and is not passing gas. She has not had any blood per rectum. The patient was never diagnosed with IBS or Crohn's in the past, but states that they believe her current issues are secondary to underlying Crohn's. She has an appointment with GI this month for evaluation. She denies any vaginal discharge or bleeding. There has not been any chest pain. Home Medications Home Medications Medication Instructions Recorded Confirmed Type multivitamin 1 tab PO QAM 10/18/18 11/04/18 History ciprofloxacin HCl 500 mg PO BID #30 tab 10/23/18 11/04/18 Rx metronidazole [Flagyl] 500 mg PO BID #10 tab 10/23/18 11/04/18 Rx acetaminophen [Tylenol Extra 1,000 mg PO Q6H PRN 11/04/18 11/04/18 History Strength] prednisone 80 mg PO QAM 11/04/18 11/04/18 History Allergies Allergy/AdvReac Type Severity Reaction Status Date / Time No Known Allergies Allergy Verified 11/04/18 11:43 Past Med/Surg History Medical History Cellulitis of left knee (Resolved) Gall bladder disease (Resolved) Vertigo (Resolved) Surgical History History of cholecystectomy (Chronic) [place] teeth extracted (Resolved) Family History Other CAD (coronary artery disease) HTN (hypertension) Lung cancer Pancreatic cancer Social History Preferred Language: Armenian Communication Ability: Effective Spanish Tutor Required: No Beliefs That Will Affect Care: None Current Living Situation: Spouse and Family Other Information That Helps Us Care for You: No Feels Safe at Home: Yes Safety Concerns: Feels Safe At This Time Smoking Status: Never smoker Hx Alcohol Use: Yes Hx Substance Use: No Review of Systems See HPI for pertinent positives & negatives. and A total of 10 systems reviewed and were otherwise negative Physical Exam Vital Signs Vital Signs - 24 hr 11/04/18 10:53 11/04/18 12:18 11/04/18 13:41 Temperature 36.6 C Temperature Source Oral Sepsis Recent Fever Within 48 Hours No Sepsis Action Taken by Nursing No Action Required Pulse Rate 118 H Pulse Rate [Right Finger] 65 78 Pulse Rhythm [Right Finger] Pulse Strength [Right Finger] Respiratory Rate 16 20 20 Respiratory Effort / Characteristics Non-Labored Respiratory Depth Normal Respiratory Pattern Blood Pressure 113/76 Blood Pressure [Right Arm] 115/73 137/89 Blood Pressure Mean 88 Blood Pressure Mean [Right Arm] 87 105 Blood Pressure Position [Right Arm] Pulse Oximetry 94 100 98 Oxygen Delivery Method Room Air Room Air Room Air 11/04/18 13:53 11/04/18 15:18 11/04/18 15:35 Temperature Temperature Source Sepsis Recent Fever Within 48 Hours Sepsis Action Taken by Nursing Pulse Rate Pulse Rate [Right Finger] 102 H 91 H Pulse Rhythm [Right Finger] Regular Pulse Strength [Right Finger] Normal Respiratory Rate 20 25 H Respiratory Effort / Characteristics Non-Labored Spontaneous Respiratory Depth Normal Respiratory Pattern Regular Blood Pressure Blood Pressure [Right Arm] 142/91 H 120/80 Blood Pressure Mean Blood Pressure Mean [Right Arm] 108 93 Blood Pressure Position [Right Arm] Sitting Pulse Oximetry 98 95 Oxygen Delivery Method Room Air Room Air Room Air Constitutional: Vital signs reviewed. Eyes: Pupils are equal round reactive to light. Conjunctiva are noninjected. ENT: Pharynx is clear without erythema or exudate. Mucous membranes are moist. Neck supple without meningeal signs. Respiratory: Clear to auscultation bilaterally. Breath sounds are equal bilaterally. Cardiovascular: Regular rate and rhythm. No rubs or gallops. GI: Soft, nondistended. There is mild upper abdominal tenderness, no guarding. Bowel sounds are present. Musculoskeletal: No peripheral edema. No lower extremity tenderness. Integumentary: No cyanosis. Neurological: The patient is awake and alert. No focal deficits. Psychiatric: Normal affect. Course 1106: Past medical records reviewed. The patient was evaluated in room D1B, and a complete history and physical examination were performed. 1205: I updated the patient on test results. She denies any urinary symptoms. She agrees to hospital admission. 1310: I reviewed the patient's case with Brie Yang PA-C. She will evaluate the patient for further management. She would like me to discuss with surgery. 1314: I reviewed the patient's case with Javier Houston - General Surgery. He is aware of the case. Administered Medications Discontinued Medications Sodium Chloride (Nss 1000ml) 1,000 mls @ 999 mls/hr IV .Q1H1M ANIBAL Stop: 11/04/18 12:15 Last Infusion: 11/04/18 12:39 Dose: 0 mls/hr Documented by: [id number] Admin: 11/04/18 11:38 Dose: 999 mls/hr Documented by: [id number] Lorazepam (Ativan) Confirm Administered Dose 2 mg .ROUTE .STK-MED ONE Stop: 11/04/18 15:12 Last Admin: 11/04/18 15:15 Dose: 0.5 mg Documented by: [id number] Ondansetron HCl (Zofran) 4 mg IV NOW STA Stop: 11/04/18 11:11 Last Admin: 11/04/18 11:38 Dose: 4 mg Documented by: [id number] Ondansetron HCl (Zofran) Confirm Administered Dose 4 mg .ROUTE .STK-MED ONE Stop: 11/04/18 15:12 Last Admin: 11/04/18 15:15 Dose: 4 mg Documented by: [id number] . Medical Decision Making Differential Diagnosis Differential Diagnosis includes: SBO, partial obstruction, gastritis, Crohn's disease, colitis. Medical Records Attestation: I reviewed the patient's medical records. Home Medications Current Medication List: was personally reviewed by me Laboratory Data Attestation: I reviewed the patient's lab results. Result diagrams: 11/04/18 11:30 11/04/18 11:30 Lab Results 11/04/18 11/04/18 11/04/18 Range/Units 11:30 11:30 11:35 WBC 17.84 H (4.8-10.8) K/uL RBC 4.69 (4.2-5.4) M/uL Hgb 12.2 (12.0-16.0) g/dL Hct 38.2 (37-47) % MCV 81.4 (80-100) fL MCH 26.0 (25-34) pg MCHC 31.9 L (32-36) g/dL RDW Std Deviation 43.6 (36.4-46.3) fL RDW Coeff of Celio 14.7 H (11.5-14.5) % Plt Count 368 (130-400) K/uL MPV 9.3 (7.4-10.4) fL Immature Gran % (Auto) 0.7 % Neut % (Auto) 76.0 % Lymph % (Auto) 12.6 % Dick[place] % (Auto) 10.3 % Eos % (Auto) 0.3 % Baso % (Auto) 0.1 % Immature Gran # (Auto) 0.12 H (0.00-0.02) K/uL Neut # (Auto) 13.57 H (1.4-6.5) K/uL Lymph # (Auto) 2.24 (1.2-3.4) K/uL [place] # (Auto) 1.84 H (0.11-0.59) K/uL Eos # (Auto) 0.05 (0-0.5) K/uL Baso # (Auto) 0.02 (0-0.2) K/uL Sodium 140 (136-145) mmol/L Potassium 3.2 L (3.5-5.1) mmol/L Chloride 100 (98-107) mmol/L Carbon Dioxide 31 (21-32) mmol/L Anion Gap 9.0 (3-11) BUN 14 (7-18) mg/dl Creatinine 0.78 (0.6-1.2) mg/dl Est Cr Clr Drug Dosing 127.8 ml/min Est GFR ( Amer) 112.6 Est GFR (Non-Af Amer) 97.1 BUN/Creatinine Ratio 17.7 (10-20) Glucose 105 H (70-99) mg/dl Calcium 9.2 (8.5-10.1) mg/dl Total Bilirubin 0.8 (0.2-1) mg/dl AST 19 (15-37) U/L ALT 36 (12-78) U/L Alkaline Phosphatase 63 (45-117) U/L Total Protein 7.1 (6.4-8.2) gm/dl Albumin 3.4 (3.4-5.0) gm/dl Globulin 3.7 (2.5-4.0) gm/dl Albumin/Globulin Ratio 0.9 (0.9-2) Lipase 117 (73-393) U/L Urine Color Urine Appearance (Clear) Urine pH (4.5-7.5) Ur Specific [place] (1.000-1.030) Urine Protein (Negative) Urine Glucose (UA) (Negative) Urine Ketones (Negative) Urine Blood (Negative) Urine Nitrite (Negative) Urine Bilirubin (Negative) Urine Urobilinogen (Negative) Ur Leukocyte Esterase (Negative) Urine WBC (Auto) (0-5) /hpf Urine RBC (Auto) (0-4) /hpf U Hyaline Cast (Auto) (0-5) /lpf U Epithel Cells (Auto) (0-5) /lpf Urine Bacteria (Auto) (Negative) Ur Renal Epithelial Cell Urine Mucus (None Prsent) POC Ur Test NEG (NEG) 11/04/18 Range/Units 11:35 WBC (4.8-10.8) K/uL RBC (4.2-5.4) M/uL Hgb (12.0-16.0) g/dL Hct (37-47) % MCV (80-100) fL MCH (25-34) pg MCHC (32-36) g/dL RDW Std Deviation (36.4-46.3) fL RDW Coeff of Celio (11.5-14.5) % Plt Count (130-400) K/uL MPV (7.4-10.4) fL Immature Gran % (Auto) % Neut % (Auto) % Lymph % (Auto) % Dick[place] % (Auto) % Eos % (Auto) % Baso % (Auto) % Immature Gran # (Auto) (0.00-0.02) K/uL Neut # (Auto) (1.4-6.5) K/uL Lymph # (Auto) (1.2-3.4) K/uL [place] # (Auto) (0.11-0.59) K/uL Eos # (Auto) (0-0.5) K/uL Baso # (Auto) (0-0.2) K/uL Sodium (136-145) mmol/L Potassium (3.5-5.1) mmol/L Chloride (98-107) mmol/L Carbon Dioxide (21-32) mmol/L Anion Gap (3-11) BUN (7-18) mg/dl Creatinine (0.6-1.2) mg/dl Est Cr Clr Drug Dosing ml/min Est GFR ( Amer) Est GFR (Non-Af Amer) BUN/Creatinine Ratio (10-20) Glucose (70-99) mg/dl Calcium (8.5-10.1) mg/dl Total Bilirubin (0.2-1) mg/dl AST (15-37) U/L ALT (12-78) U/L Alkaline Phosphatase (45-117) U/L Total Protein (6.4-8.2) gm/dl Albumin (3.4-5.0) gm/dl Globulin (2.5-4.0) gm/dl Albumin/Globulin Ratio (0.9-2) Lipase (73-393) U/L Urine Color Dark Yellow Urine Appearance Cloudy H (Clear) Urine pH 7.5 (4.5-7.5) Ur Specific [place] 1.024 (1.000-1.030) Urine Protein Negative (Negative) Urine Glucose (UA) Negative (Negative) Urine Ketones Trace H (Negative) Urine Blood 3+ H (Negative) Urine Nitrite Negative (Negative) Urine Bilirubin Negative (Negative) Urine Urobilinogen Negative (Negative) Ur Leukocyte Esterase 1+ H (Negative) Urine WBC (Auto) 5-10 H (0-5) /hpf Urine RBC (Auto) >30 H (0-4) /hpf U Hyaline Cast (Auto) 10-30 H (0-5) /lpf U Epithel Cells (Auto) >30 H (0-5) /lpf Urine Bacteria (Auto) 1+ H (Negative) Ur Renal Epithelial Cell Not Reportable Urine Mucus Present H (None Prsent) POC Ur Test (NEG) Imaging Data Attestation: I personally reviewed and interpreted this imaging study as follows: Radiologist's Impression: PA CHEST WITH ABDOMINAL SERIES CLINICAL HISTORY: Vomiting. FINDINGS: A PA chest radiograph is compared to study dated 10/18/2018. The cardiomediastinal silhouette is unremarkable. There is bibasilar scarring/atelectasis and chronic elevation of the right hemidiaphragm. No airspace consolidation or pleural effusion is identified. No pneumothorax is seen. The bony thorax is grossly intact. Supine and erect abdominal radiographs are compared to study dated 10/22/2018 and correlated with abdominal CT dated 10/20/2018. Cholecystectomy clips are seen in the right upper quadrant. Findings are consistent with a small bowel obstruction. Distended and gas-filled loops of proximal small bowel measure up to 5 cm. Air-fluid levels are noted on the upright view. No evidence of intraperitoneal free air is seen. There are no abnormal abdominal calcifications. The lumbosacral spine and bony pelvis appear intact. IMPRESSION: 1. No active disease in the chest. 2. Findings are consistent with small bowel obstruction. Electronically signed by: Maksim Mancera M.D. 11/04/2018 12:51 PM Blood Pressure Blood Pressure Findings: Normal blood pressure MDM Narrative I did perform a limited focused review of portions of the patient's old chart on the electronic medical record. The patient was admitted here on October 20 for colitis and SBO. I did evaluate the patient as noted above. Patient is presenting with symptoms consistent with her prior small bowel obstruction. She has some tenderness in the upper abdomen. IV access was established. The patient was placed on a continuous national sales representative. I did treat her with Zofran and normal saline IV. I did order and personally review the patient's abdominal and chest x-ray as described above. She does have a small bowel obstruction. I did order and review the patient's blood work as noted in the electronic medical record. Her white blood cell count is elevated. I did discuss the test results with the patient. I did order an NG tube. She was given a small dose of Ativan IV due to the discomfort of the NG tube. I did discuss case with general surgery as well as the hospitalist. Impression & Plan Small bowel obstruction Discharge Plan Visit Data *Final* Discharge Date/Time: 11/04/18 16:00 Chief Complaint: Abdominal Pain Stated Complaint: SEVERE ABD PAIN AND VOMITING ED Provider: Guzman Joya Discharge Problem: Small bowel obstruction Patient Disposition: Admitted As Inpatient Discharge Instructions Interventions: ED Discharge Assessment Last Done: 11/04/18 16:00 The scribe's documentation has been prepared under my direction and personally reviewed by me in its entirety. I confirm that the note above accurately reflects all work, treatment, procedures, and medical decision making performed by me.
[2018-11-04] MEDS: metroNIDAZOLE 500 MG/100 ML BAG IV SCH (17:08)
[2018-11-04] MEDS: CIPROFLOXACIN 400 MG/200 ML BAG IV SCH (19:44)
[2018-11-04] MEDS ORDERED: MoRPHine SULFATE 4 MG/ML 1 ML CARP\\VIAL IV ONE (19:57)
[2018-11-04] MEDS ORDERED: MoRPHine SULFATE 4 MG/ML 1 ML CARP\\VIAL IV PRN (20:20)
[2018-11-04] MEDS: methylPREDNISolone 20 MG in SYRINGE 0 ML IV SCH (20:48)
[2018-11-04] MEDS: POTASSIUM CHLORIDE / WTR 10 MEQ/100 ML PLCT IV SCH ×2 (21:17→22:33)
[2018-11-05] MEDS: metroNIDAZOLE 500 MG/100 ML BAG IV SCH ×3 (00:19→16:29)
[2018-11-05] MEDS ORDERED: IOVERSOL 100ml IV PRN (02:05)
[2018-11-05] MEDS: NSS + 20MEQ KCL 20 MEQ/1,000 ML BAG IV SCH ×2 (04:22→19:13)
[2018-11-05] MEDS: CIPROFLOXACIN 400 MG/200 ML BAG IV SCH ×2 (04:30→16:30)
--- NOTE | 2018-11-05 06:56 | CT Scan Report ---
ABDOMEN AND PELVIS CT WITH IV CONTRAST CT DOSE: 1373.08 mGy.cm HISTORY: Acute generalized abdominal pain with small bowel obstruction SBO TECHNIQUE: Multiaxial CT images of the abdomen and pelvis were performed following the use of intrave nous contrast. A dose lowering technique was utilized adhering to the principles of ALARA. COMPARISON STUDY: CT abdomen pelvis 10/20/2018 and 10/19/2018. FINDINGS: Subsegmental bibasilar groundglass and linear consolidative opacities, right greater than left are s uggestive of probable atelectasis. No pneumatosis or pneumoperitoneum. Imaged inferior cardiac chambe rs appear to be unremarkable. Prior cholecystectomy. Liver appears unremarkable. Spleen, pancreas and adrenal glands appear unremar kable. Kidneys, ureters and urinary bladder are within normal limits. Uterus and right adnexum are un remarkable. Cystic structure about the left adnexum is noted, 3.4 x 3.9 cm. Trace free pelvic fluid. The aorta and IVC are unremarkable. No adenopathy by CT size criteria. Enteric tube distal tip terminates in the proximal gastric body. Small bowel obstruction with multipl e air and fluid-filled loops of small bowel throughout the abdomen and pelvis measuring up to 4.1 cm transversely. Transition point is again noted about the terminal ileum where there is redemonstration of a focal area of irregular soft tissue thickening measuring approximately 4.0 x 3.6 cm. Small bran l tethering within this region is redemonstrated with a normal appendix not identified. Unchanged 1.3 cm tubular structure about the abdominal right lower quadrant suggestive of a decompressed loop of s mall bowel. Mild interloop edema within this distribution with trace free pelvic fluid. Multiple neda tional irregular loops of small bowel are seen within the right lower quadrant abdomen. The large bow el is probably decompressed. Minimal colonic diverticulosis without acute diverticulitis. Soft tissues are unremarkable. Bones appear to be intact. No suspicious lytic or blastic bony lesions . IMPRESSION: 1. High-grade small bowel obstruction with transition point at the terminal ileum. These findings laura ear similar to comparison study from 10/19/2018 and 10/20/2018. Again, there is a focal area of soft ti ssue prominence about the terminal ileum which measures up to 4.0 cm suggestive of tethered small bow el loops with underlying adhesions versus underlying soft tissue mass. If not early conducted, a foll ow-up colonoscopy is again recommended. 2. Mild reactive interloop edema with trace free fluid about the lower abdomen and pelvis. 3. No pneumatosis or pneumoperitoneum. 4. Nonvisualization of the appendix. 5. Left ovarian cyst, 3.9 x 3.4 cm. 6. Additional findings as above. Electronically signed by: Benitez Smith M.D. 11/05/2018 6:55 AM
[2018-11-05 07:27] LABS: Basophils # (auto) 0.01 K/uL (0-0.2); Basophils % (auto) 0.1 %; Eosinophils # (auto) 0.04 K/uL (0-0.5); Eosinophils % (auto) 0.2 %; Hematocrit (blood only) 36.1 % (37-47); Hemoglobin 11.1 g/dL (12.0-16.0); Immature Granulocytes # (auto) 0.12 K/uL (0.00-0.02); Immature Granulocytes % (auto) 0.7 %; Lymphocytes # (auto) 1.47 K/uL (1.2-3.4); Lymphocytes % (auto) 8.2 %; Mean Corpuscular Hgb Conc 30.7 g/dL (32-36); Mean Corpuscular Volume 83.2 fL (80-100); Mean Platelet Volume 9.3 fL (7.4-10.4); Monocytes # (auto) 1.29 K/uL (0.11-0.59); Monocytes % (auto) 7.2 %; Neutrophils % (auto) 83.6 %; Platelet Count 351 K/uL (130-400); RDW Standard Deviation 45.9 fL (36.4-46.3); Red Blood Count 4.34 M/uL (4.2-5.4); White Blood Count 17.83 K/uL (4.8-10.8)
--- NOTE | 2018-11-05 07:39 | XRay Report ---
KUB HISTORY: Acute generalized abdominal pain with small bowel obstruction SBO COMPARISON: CT of same day. FINDINGS: Persistent dilated air-filled small bowel loops are noted measuring up to 4.9 cm transversely. Minima l air noted within the large bowel. No pneumatosis or pneumoperitoneum. No urolith. Cholecystectomy. Distal tip of enteric tube projects superiorly within the region of the gastric fundus. Mild right he midiaphragmatic elevation with bibasilar atelectasis. No acute fracture. Contrast noted within the ur inary bladder lumen. IMPRESSION: 1. Persistent small bowel obstruction. 2. Distal tip of enteric tube projects superiorly in the region of the gastric fundus. 3. No pneumatosis or pneumoperitoneum. 4. Cholecystectomy. Electronically signed by: Benitez Smith M.D. 11/05/2018 7:38 AM
[2018-11-05 08:18] LABS: BUN Creatinine Ratio 15.7 (10-20); Calcium 8.1 mg/dl (8.5-10.1); Creatinine Clr Calc Pharmacy 158.2 ml/min; Est GFR (African American) 132.8; Est GFR (Non-African American) 114.6; Magnesium 2.4 mg/dl (1.8-2.4); Potassium 4.3 mmol/L (3.5-5.1)
[2018-11-05] MEDS: methylPREDNISolone 20 MG in SYRINGE 0 ML IV SCH ×2 (09:03→16:43)
--- NOTE | 2018-11-05 09:10 | Surgery Progress Note ---
Date of Service November 05, 2018 Assessment & Plan (1) Small bowel obstruction: 38-year-old female with suspected IBD and persistent partial small bowel obstruction. CT scan unchanged, feeling better this morning. GI to see patient today No surgical intervention at this time Dr. Mendez covering over the weekend, surgery will continue to follow, call with questions or concerns Present on Admission?: Yes Subjective 38-year-old female with suspected IBD admitted yesterday for persistent partial small bowel obstruction. CT scan last night essentially unchanged from prior studies. She feels better this morning, has not passed flatus. Physical Exam Vital Signs (Past 24 Hours): Last Vital Signs Temp 36.8 C 11/05/18 07:20 Pulse 82 11/05/18 07:20 Resp 16 11/05/18 07:20 BP 133/85 11/05/18 07:20 Pulse Ox 95 11/05/18 07:20 Constitutional: WD/WN, vitals as above Gastrointestinal (Abdomen): Inspection/Auscultation: + abdomen distended Percussion/Palpation: + abdomen tender (Moderately tender palpation in epigastric region. No guarding or rebound) and abdomen soft; no guarding Results & Data Laboratory Results Laboratory Results - last 24 hr 11/04/18 11/04/18 11/04/18 11:30 11:30 11:35 WBC 17.84 H RBC 4.69 Hgb 12.2 Hct 38.2 MCV 81.4 MCH 26.0 MCHC 31.9 L RDW Std Deviation 43.6 RDW Coeff of Celio 14.7 H Plt Count 368 MPV 9.3 Immature Gran % (Auto) 0.7 Neut % (Auto) 76.0 Lymph % (Auto) 12.6 Jay % (Auto) 10.3 Eos % (Auto) 0.3 Baso % (Auto) 0.1 Immature Gran # (Auto) 0.12 H Neut # (Auto) 13.57 H Lymph # (Auto) 2.24 Jay # (Auto) 1.84 H Eos # (Auto) 0.05 Baso # (Auto) 0.02 Sodium 140 Potassium 3.2 L Chloride 100 Carbon Dioxide 31 Anion Gap 9.0 BUN 14 Creatinine 0.78 Est Cr Clr Drug Dosing 127.8 Est GFR ( Amer) 112.6 Est GFR (Non-Af Amer) 97.1 BUN/Creatinine Ratio 17.7 Glucose 105 H Calcium 9.2 Magnesium Total Bilirubin 0.8 AST 19 ALT 36 Alkaline Phosphatase 63 Total Protein 7.1 Albumin 3.4 Globulin 3.7 Albumin/Globulin Ratio 0.9 Lipase 117 Urine Color Urine Appearance Urine pH Ur Specific [place] Urine Protein Urine Glucose (UA) Urine Ketones Urine Blood Urine Nitrite Urine Bilirubin Urine Urobilinogen Ur Leukocyte Esterase Urine WBC (Auto) Urine RBC (Auto) U Hyaline Cast (Auto) U Epithel Cells (Auto) Urine Bacteria (Auto) Ur Renal Epithelial Cell Urine Mucus POC Ur Test NEG 11/04/18 11/05/18 11/05/18 11:35 07:11 07:11 WBC 17.83 H RBC 4.34 Hgb 11.1 L Hct 36.1 L MCV 83.2 MCH 25.6 MCHC 30.7 L RDW Std Deviation 45.9 RDW Coeff of [place] 15.0 H Plt Count 351 MPV 9.3 Immature Gran % (Auto) 0.7 Neut % (Auto) 83.6 Lymph % (Auto) 8.2 Jay % (Auto) 7.2 Eos % (Auto) 0.2 Baso % (Auto) 0.1 Immature Gran # (Auto) 0.12 H Neut # (Auto) 14.90 H Lymph # (Auto) 1.47 Jay # (Auto) 1.29 H Eos # (Auto) 0.04 Baso # (Auto) 0.01 Sodium 137 Potassium 4.3 D Chloride 106 Carbon Dioxide 27 Anion Gap 4.0 BUN 10 Creatinine 0.63 Est Cr Clr Drug Dosing 158.2 Est GFR ( Amer) 132.8 Est GFR (Non-Af Amer) 114.6 BUN/Creatinine Ratio 15.7 Glucose 99 Calcium 8.1 L Magnesium 2.4 Total Bilirubin AST ALT Alkaline Phosphatase Total Protein Albumin Globulin Albumin/Globulin Ratio Lipase Urine Color Dark Yellow Urine Appearance Cloudy H Urine pH 7.5 Ur Specific [place] 1.024 Urine Protein Negative Urine Glucose (UA) Negative Urine Ketones Trace H Urine Blood 3+ H Urine Nitrite Negative Urine Bilirubin Negative Urine Urobilinogen Negative Ur Leukocyte Esterase 1+ H Urine WBC (Auto) 5-10 H Urine RBC (Auto) >30 H U Hyaline Cast (Auto) 10-30 H U Epithel Cells (Auto) >30 H Urine Bacteria (Auto) 1+ H Ur Renal Epithelial Cell Not Reportable Urine Mucus Present H POC Ur Test Diagnostic Findings ABDOMEN AND PELVIS CT WITH IV CONTRAST CT DOSE: 1373.08 mGy.cm HISTORY: Acute generalized abdominal pain with small bowel obstruction SBO TECHNIQUE: Multiaxial CT images of the abdomen and pelvis were performed following the use of intravenous contrast. A dose lowering technique was utilized adhering to the principles of ALARA. COMPARISON STUDY: CT abdomen pelvis 10/20/2018 and 10/19/2018. FINDINGS: Subsegmental bibasilar groundglass and linear consolidative opacities, right greater than left are suggestive of probable atelectasis. No pneumatosis or pneumoperitoneum. Imaged inferior cardiac chambers appear to be unremarkable. Prior cholecystectomy. Liver appears unremarkable. Spleen, pancreas and adrenal glands appear unremarkable. Kidneys, ureters and urinary bladder are within normal limits. Uterus and right adnexum are unremarkable. Cystic structure about the left adnexum is noted, 3.4 x 3.9 cm. Trace free pelvic fluid. The aorta and IVC are unremarkable. No adenopathy by CT size criteria. Enteric tube distal tip terminates in the proximal gastric body. Small bowel obstruction with multiple air and fluid-filled loops of small bowel throughout the abdomen and pelvis measuring up to 4.1 cm transversely. Transition point is again noted about the terminal ileum where there is redemonstration of a focal area of irregular soft tissue thickening measuring approximately 4.0 x 3.6 cm. Small bowel tethering within this region is redemonstrated with a normal appendix not identified. Unchanged 1.3 cm tubular structure about the abdominal right lower quadrant suggestive of a decompressed loop of small bowel. Mild interloop edema within this distribution with trace free pelvic fluid. Multiple additional irregular loops of small bowel are seen within the right lower quadrant abdomen. The large bowel is probably decompressed. Minimal colonic diverticulosis without acute diverticulitis. Soft tissues are unremarkable. Bones appear to be intact. No suspicious lytic or blastic bony lesions. IMPRESSION: 1. High-grade small bowel obstruction with transition point at the terminal ileum. These findings appear similar to comparison study from 10/19/2018 and 10/20/2018. Again, there is a focal area of soft tissue prominence about the terminal ileum which measures up to 4.0 cm suggestive of tethered small bowel loops with underlying adhesions versus underlying soft tissue mass. If not early conducted, a follow-up colonoscopy is again recommended. 2. Mild reactive interloop edema with trace free fluid about the lower abdomen and pelvis. 3. No pneumatosis or pneumoperitoneum. 4. Nonvisualization of the appendix. 5. Left ovarian cyst, 3.9 x 3.4 cm. 6. Additional findings as above.
--- NOTE | 2018-11-05 12:28 | Gastrointestinal Consultation ---
Date of Consultation November 05, 2018 Assessment & Plan (1) Abdominal pain: Her abdominal pain and SBO are likely caused by small bowel Crohn's inflammatory disease vs. less likely tumor. Would change steroids to IV solumedrol 20mg TID and continue cipro/flagyl. No NSAIDs (explained to pt). Bowel rest today. Would continue NG today. Will be followed by Dr. Orlando this weekend who may opt to move up the colonoscopy - or if improved pt could go home on Cipro/Flagyl, po prednisone w ith colonoscopy as previously scheduled for next . If Crohn's, Pt will need a TNF. Discussed Remicade vs. Humira with the pt the pt who does not have a strong preference for either. In the [employer] system - 2ill order Quantiferron gold and Hep B serology in anticipation of starting a TNF. Pt was asked to get these drawn when she is able. Present on Admission?: Yes (2) Small bowel obstruction: Present on Admission?: Yes Supervising Physician Co-Signing Physician Notes I have seen and examined the patient and discussed the patient's management with BRANDO Vizcarra. NG tube in place, still passing minimal gas but feels slightly better than before. Pt prefers to be NPO. Exam significant for alert female, ng tube in place, benign belly exam. Labs reviewed. Agree with further plan of care as per Abi's assessment and plan. History of Present Illness Reason for Consultation: SBO, ? IBD Requesting Physician: Dr. Vasquez Attending Physician: Ramone Vasquez MD History of Present Illness Ms. Edda Alonso is a 38 yr old female with an otherwise unremarkable PMH who is known to our group as she was admitted with similar symptoms two weeks ago. IBD was suspected and she was discharged on prednisone 40mg daily with Cipro/Flagyl as well as a mostly liquid diet. Initially, she felt well but advanced her diet about 5 days ago and has had increasing abdominal discomfort since that time. Yesterday morning at 3AM she was awakened with severe diffuse abdominal pain and returned to [facility]. On arrival, CT with IV, no oral contrast with high grade SBO with transition point at the TI, also with possible fistulous tract. I spoke with general surgery who felt that this Ct was similar to the CT during that last admission and that there is no evidence of abscess. With placement of NG, a large amt of bilous fluid was removed and pt feel much better. She continues with moderate periumbilical and LUQ discomfort and mild bloating. Regarding her IBS symptoms, she began with diarrhea bout 2 yrs ago, typically passing 2-3 loose BMs/day. She has not had blood in her BMs and has not had weight loss. At the time of the prior admission a few weeks ago as well as this admission, her main symptoms were decreased frequency of BMs, nausea, vomiting and abdominal distention. She has taken the prednisone, cipro and flagyl as prescribed (and was given a one month supply). She has an initial colonoscopy scheduled with Dr. Orlando on November 11 and f/u GI office apt after that. She does not have a family hx of IBD and did not have suspicion for IBD herself until her admission 2 weeks ago. Allergies Allergy/AdvReac Type Severity Reaction Status Date / Time No Known Allergies Allergy Verified 11/04/18 11:43 Home Medications Home Medications Medication Instructions Recorded Confirmed Type multivitamin 1 tab PO QAM 10/18/18 11/04/18 History ciprofloxacin HCl 500 mg PO BID #30 tab 10/23/18 11/04/18 Rx metronidazole [Flagyl] 500 mg PO BID #10 tab 10/23/18 11/04/18 Rx acetaminophen [Tylenol Extra 1,000 mg PO Q6H PRN 11/04/18 11/04/18 History Strength] prednisone 80 mg PO QAM 11/04/18 11/04/18 History Patient History Medical History Cellulitis of left knee (Resolved) Gall bladder disease (Resolved) Vertigo (Resolved) Surgical History History of cholecystectomy (Chronic) [place] teeth extracted (Resolved) Family History Other CAD (coronary artery disease) HTN (hypertension) Lung cancer Pancreatic cancer Social History Communication Ability: Effective Beliefs That Will Affect Care: None marital status: Current Living Situation: Spouse and Family Other Information That Helps Us Care for You: No Feels Safe at Home: Yes Safety Concerns: Feels Safe At This Time Smoking Status: Never smoker Hx Alcohol Use: Yes Hx Substance Use: No Review of Systems Gen: Denies fever, weakness, weight loss. Eyes: no vision changes, no eye redness or pain M/S: no join pain Respiratory: No SOB, no cough Cardiovascular: No irregular heartbeats or chest pain, no edema GI: See HPI : no dysuria or hematuria Ext: No edema Hem: No excessive bruising/bleeding Skin: no rashes Physical Exam Vital Signs (Past 24 Hours): Last Vital Signs Temp 36.8 C 11/05/18 07:20 Pulse 82 11/05/18 07:20 Resp 16 11/05/18 07:20 BP 133/85 11/05/18 07:20 Pulse Ox 95 11/05/18 07:20 Constitutional: well developed, well nourished and cooperative appears uncomfortable but not in severe pain Eyes: PERRL, conjunctivae normal, anicteric sclerae ENMT: external ear and nose normal, oropharynx normal Neck: trachea midline, no thyromegaly Respiratory: normal respiratory effort, lungs clear to auscultation Cardiovascular: RRR, no murmur, no edema Gastrointestinal (Abdomen): Inspection/Auscultation: + abdomen distended Percussion/Palpation: + abdomen tender (throughout, worse in the LUQ but no rebound or guarding) Though not a soft abdomen, also not firm/rigid; BS are hypoactive Skin: no rashes, warm and dry normal turgor; no jaundice and no dry skin Trauma: no evidence of skin trauma Neurologic: PERRL, EOMI, accommodation nl, no face palsy, no dysarthria Psychiatric: A+Ox3, euthymic affect Lymphatic: no cervical or axillary lymphadenopathy Results & Data Laboratory Results WBC 12.3, Hb 11.7, Hct 36, Platelets 334, Na 137, K 3.4, BUN 10, Cr 0.6. Diagnostic Findings CT with IV, no oral 11/04/18: 1. High-grade small bowel obstruction with transition point at the terminal ileum. These findings appear similar to comparison study from 10/19/2018 and 10/20/2018. Again, there is a focal area of soft tissue prominence about the terminal ileum which measures up to 4.0 cm suggestive of tethered small bowel loops with underlying adhesions versus underlying soft tissue mass. If not early conducted, a follow-up colonoscopy is again recommended. 2. Mild reactive interloop edema with trace free fluid about the lower abdomen and pelvis. 3. No pneumatosis or pneumoperitoneum. 4. Nonvisualization of the appendix. 5. Left ovarian cyst, 3.9 x 3.4 cm. 6. Additional findings as above.
--- NOTE | 2018-11-05 15:57 | Hospitalist Progress Note ---
Date of Service November 05, 2018 Assessment & Plan (1) Small bowel obstruction: (2) Abdominal pain: Recent hospitalization for SBO, abdominal pain resolved with conservative treatment. Suspicion for possible IBD. Pt on cipro, flagyl, prednisone. To have GI follow up with colonoscopy on 11/11/18. Started with abdominal pain, N/V last night, reported decreased BMs Admitted with the small bowel obstruction Repeat CT scan of the abdomen and pelvis did show right lower quadrant ill- defined mass as before, likely differential Crohn's disease Continue with Cipro and Flagyl for now Appreciate surgery and GI input No colonoscopy as of yet Clinically little better White cell count remains elevated and will monitor (3) Hypokalemia: K: 3.2. Probable secondary to vomiting -replace and monitor -Potassium is normalized DVT Prophylaxis -Low risk - ambulate Full Code Follows with Dr Vasquez for routine care Subjective 38-year-old female with suspected IBD admitted yesterday for persistent partial small bowel obstruction. CT scan last night essentially unchanged from prior studies. She feels better this morning, has not passed flatus. 11/05 The patient is seen and examined the medical floor He has been complaining of ongoing upper abdominal pain with little or no bowel movement Denies any fever and no chills Not any better evaluate NG tube suction Gastrointestinal: + abdominal pain, + bloating, + nausea and + vomiting Physical Exam Vital Signs (Past 24 Hours): Last Vital Signs Temp 36.8 C 11/05/18 15:35 Pulse 78 11/05/18 15:35 Resp 18 11/05/18 15:35 BP 123/80 11/05/18 15:35 Pulse Ox 93 11/05/18 15:35 Physical Exam: Minimal distress at rest Constitutional: WD/WN, vitals as above well developed, well nourished and cooperative Eyes: PERRL, conjunctivae normal, anicteric sclerae ENMT: external ear and nose normal, oropharynx normal Neck: trachea midline, no thyromegaly Respiratory: normal respiratory effort, lungs clear to auscultation Cardiovascular: RRR, no murmur, no edema Gastrointestinal (Abdomen): Inspection/Auscultation: + abdomen distended and normal bowel sounds (Sluggish) Percussion/Palpation: + abdomen tender (throughout, worse in the LUQ but no rebound or guarding) and abdomen soft; no guarding Skin: no rashes, warm and dry normal turgor; no jaundice and no dry skin Trauma: no evidence of skin trauma Neurologic: PERRL, EOMI, accommodation nl, no face palsy, no dysarthria Psychiatric: A+Ox3, euthymic affect Lymphatic: no cervical or axillary lymphadenopathy Results & Data Laboratory Results Short CBC 11/05/18 Range/Units 07:11 WBC 17.83 H (4.8-10.8) K/uL Hgb 11.1 L (12.0-16.0) g/dL Hct 36.1 L (37-47) % Plt Count 351 (130-400) K/uL BMP 11/05/18 07:11 Sodium 137 Potassium 4.3 D Chloride 106 Carbon Dioxide 27 BUN 10 Creatinine 0.63 Glucose 99 Calcium 8.1 L Medications Administered Current Inpatient Medications Ciprofloxacin (Cipro) 400 mg in 200 mls @ 100 mls/hr IV Q12H ANIBAL Stop: 11/14/18 16:59 Last Infusion: 11/05/18 06:30 Dose: Infused Documented by: Metronidazole (Flagyl) 500 mg in 100 mls @ 100 mls/hr IV Q8H ANIBAL Stop: 11/08/18 16:59 Last Infusion: 11/05/18 10:03 Dose: Infused Documented by: Methylprednisolone 20 mg/ (Syringe) 0.32 mls @ 1.5 mls/min IV Q8H ANIBAL Stop: 12/05/18 15:59 Ioversol (Optiray 320 100ml) 100 ml IV ONCE PRN PRN Reason: Interaction Checking Stop: 11/09/18 02:04 Last Admin: 11/05/18 02:05 Dose: 93 ml Documented by: Morphine Sulfate (Morphine Sulfate) 3 mg IV Q3H PRN PRN Reason: Pain Stop: 11/18/18 20:19 Ondansetron HCl (Zofran) 4 mg IV Q6H PRN PRN Reason: Nausea Stop: 12/04/18 16:25
[2018-11-06] MEDS: metroNIDAZOLE 500 MG/100 ML BAG IV SCH ×4 (00:29→23:41)
[2018-11-06] MEDS: methylPREDNISolone 20 MG in SYRINGE 0 ML IV SCH ×4 (00:29→23:41)
[2018-11-06] MEDS: NSS + 20MEQ KCL 20 MEQ/1,000 ML BAG IV SCH ×2 (05:04→18:52)
[2018-11-06] MEDS: CIPROFLOXACIN 400 MG/200 ML BAG IV SCH ×2 (05:04→16:35)
[2018-11-06 07:31] LABS: Basophils # (auto) 0.01 K/uL (0-0.2); Basophils % (auto) 0.1 %; Eosinophils # (auto) 0.02 K/uL (0-0.5); Eosinophils % (auto) 0.1 %; Hematocrit (blood only) 37.3 % (37-47); Hemoglobin 11.8 g/dL (12.0-16.0); Immature Granulocytes # (auto) 0.16 K/uL (0.00-0.02); Immature Granulocytes % (auto) 0.9 %; Lymphocytes % (auto) 7.7 %; Mean Corpuscular Hgb Conc 31.6 g/dL (32-36); Mean Corpuscular Volume 82.7 fL (80-100); Mean Platelet Volume 9.2 fL (7.4-10.4); Monocytes # (auto) 1.07 K/uL (0.11-0.59); Monocytes % (auto) 5.9 %; Neutrophils # (auto) 15.58 K/uL (1.4-6.5); Neutrophils % (auto) 85.3 %; Platelet Count 397 K/uL (130-400); RDW Coefficient of Variation 14.8 % (11.5-14.5); RDW Standard Deviation 44.7 fL (36.4-46.3); Red Blood Count 4.51 M/uL (4.2-5.4); White Blood Count 18.24 K/uL (4.8-10.8)
[2018-11-06 07:57] LABS: BUN Creatinine Ratio 12.1 (10-20); Calcium 8.6 mg/dl (8.5-10.1); Creatinine Clr Calc Pharmacy 144.5 ml/min; Est GFR (African American) 128.9; Est GFR (Non-African American) 111.2; Magnesium 2.4 mg/dl (1.8-2.4)
--- NOTE | 2018-11-06 10:56 | Hospitalist Progress Note ---
Date of Service November 06, 2018 Assessment & Plan (1) Small bowel obstruction: (2) Abdominal pain: Recent hospitalization for SBO, abdominal pain resolved with conservative treatment. Suspicion for possible IBD. Pt on cipro, flagyl, prednisone. To have GI follow up with colonoscopy on 11/11/18. Started with abdominal pain, N/V last night, reported decreased BMs Admitted with the small bowel obstruction Repeat CT scan of the abdomen and pelvis did show right lower quadrant ill- defined mass as before, likely differential Crohn's disease Continue with Cipro and Flagyl for now Appreciate surgery and GI input No colonoscopy as of yet White cell count remains elevated and will monitor-likely secondary to use of steroids Clinically a little worse today We will continue current management (3) Hypokalemia: K: 3.2. Probable secondary to vomiting -replace and monitor -Potassium is normalized DVT Prophylaxis -Low risk - ambulate Full Code Follows with Dr Vasquez for routine care Subjective 38-year-old female with suspected IBD admitted yesterday for persistent partial small bowel obstruction. CT scan last night essentially unchanged from prior studies. She feels better this morning, has not passed flatus. 11/05 The patient is seen and examined the medical floor He has been complaining of ongoing upper abdominal pain with little or no bowel movement Denies any fever and no chills Not any better evaluate NG tube suction 11/06 Has been complaining of more abdominal distention and discomfort Bowel has not been moving and no gas is passing Denies any nausea and/or vomiting NG tube has been taken out due to discomfort Gastrointestinal: + abdominal pain, + bloating, + nausea and + vomiting Physical Exam Vital Signs (Past 24 Hours): Last Vital Signs Temp 36.8 C 11/06/18 07:46 Pulse 96 H 11/06/18 07:46 Resp 20 11/06/18 07:46 BP 124/64 11/06/18 07:46 Pulse Ox 89 L 11/06/18 07:46 Physical Exam: Very anxious with minimal discomfort in the abdomen Constitutional: WD/WN, vitals as above well developed, well nourished and cooperative Eyes: PERRL, conjunctivae normal, anicteric sclerae ENMT: external ear and nose normal, oropharynx normal Neck: trachea midline, no thyromegaly Respiratory: normal respiratory effort, lungs clear to auscultation Cardiovascular: RRR, no murmur, no edema Gastrointestinal (Abdomen): Inspection/Auscultation: + abdomen distended and normal bowel sounds (Sluggish) Percussion/Palpation: + abdomen tender (throughout, worse in the LUQ but no rebound or guarding) and abdomen soft; no guarding and abdomen not rigid Skin: no rashes, warm and dry normal turgor; no jaundice and no dry skin Trauma: no evidence of skin trauma Neurologic: PERRL, EOMI, accommodation nl, no face palsy, no dysarthria Psychiatric: A+Ox3, euthymic affect Lymphatic: no cervical or axillary lymphadenopathy Results & Data Laboratory Results Short CBC 11/06/18 Range/Units 07:18 WBC 18.24 H (4.8-10.8) K/uL Hgb 11.8 L (12.0-16.0) g/dL Hct 37.3 (37-47) % Plt Count 397 (130-400) K/uL BMP 11/06/18 07:18 Sodium 135 L Potassium 4.0 Chloride 104 Carbon Dioxide 23 BUN 8 Creatinine 0.69 Glucose 127 H Calcium 8.6 Medications Administered Current Inpatient Medications Ciprofloxacin (Cipro) 400 mg in 200 mls @ 100 mls/hr IV Q12H ANIBAL Stop: 11/14/18 16:59 Last Infusion: 11/06/18 07:17 Dose: Infused Documented by: Metronidazole (Flagyl) 500 mg in 100 mls @ 100 mls/hr IV Q8H ANIBAL Stop: 11/08/18 16:59 Last Infusion: 11/06/18 09:48 Dose: Infused Documented by: Methylprednisolone 20 mg/ (Syringe) 0.32 mls @ 1.5 mls/min IV Q8H ANIBAL Stop: 12/05/18 15:59 Last Admin: 11/06/18 08:46 Dose: 1.5 mls/min Documented by: Potassium Chloride/Sodium Chloride (Normal Saline W/20 Meq Kcl) 20 meq in 1,000 mls @ 100 mls/hr IV .Q10H ANIBAL Stop: 12/05/18 17:44 Last Infusion: 11/06/18 09:50 Dose: 100 mls/hr Documented by: Ioversol (Optiray 320 100ml) 100 ml IV ONCE PRN PRN Reason: Interaction Checking Stop: 11/09/18 02:04 Last Admin: 11/05/18 02:05 Dose: 93 ml Documented by: Morphine Sulfate (Morphine Sulfate) 3 mg IV Q3H PRN PRN Reason: Pain Stop: 11/18/18 20:19 Ondansetron HCl (Zofran) 4 mg IV Q6H PRN PRN Reason: Nausea Stop: 12/04/18 16:25
--- NOTE | 2018-11-06 13:07 | Surgery Progress Note ---
Date of Service November 06, 2018 pt is stable. the NG tube was pulled out yesterday, not passed BM yet. mild abdominal pain, no nausea, no vomiting, Assessment & Plan (1) Small bowel obstruction: stable, SBO, not pass BM yet. I recommend to insertion NG Tube, but pt wants to wait, D/W possible surgery treatment if pt is not getting better, pt understood, I answered all questions, continue conservative treatment, repeat labs in am, will F/U Physical Exam Vital Signs (Past 24 Hours): Last Vital Signs Temp 36.7 C 11/06/18 12:02 Pulse 76 11/06/18 12:02 Resp 18 11/06/18 12:02 BP 130/84 11/06/18 12:02 Pulse Ox 92 11/06/18 12:02 Constitutional: WD/WN, vitals as above Neck: trachea midline, no thyromegaly Respiratory: normal respiratory effort, lungs clear to auscultation Cardiovascular: RRR, no murmur, no edema Gastrointestinal (Abdomen): Percussion/Palpation: abdomen soft slight tenderness at periumbilical area, no distend, BS + Neurologic: awake Psychiatric: Orientation: alert and oriented x 3 Results & Data Laboratory Results Abnormal lab results 11/06/18 11/06/18 Range/Units 07:18 07:18 WBC 18.24 H (4.8-10.8) K/uL Hgb 11.8 L (12.0-16.0) g/dL MCHC 31.6 L (32-36) g/dL RDW Coeff of Celio 14.8 H (11.5-14.5) % Immature Gran # (Auto) 0.16 H (0.00-0.02) K/uL Neut # (Auto) 15.58 H (1.4-6.5) K/uL [place] # (Auto) 1.07 H (0.11-0.59) K/uL Sodium 135 L (136-145) mmol/L Glucose 127 H (70-99) mg/dl
--- NOTE | 2018-11-06 13:55 | Gastroenterology Progress Note ---
Date of Service November 06, 2018 Pt continnues to be obstipated, without flatus. She has mild colicky abd pain. She denies hunger. On exam, she appears comfortable, and is pleasant. Her abd is mod distended and tympanic with decreased BS. A/P: Recurrent SBO, prob Crohn's, no response to steroids - D/w surgery -- Will cont conservative care for now. I suspect that she will ultimately require surgery -- spoke to Dr Valles, will anticipate surgery next Wed pending clinical course. Physical Exam Vital Signs (Past 24 Hours): Last Vital Signs Temp 36.7 C 11/06/18 12:02 Pulse 76 11/06/18 12:02 Resp 18 11/06/18 12:02 BP 130/84 11/06/18 12:02 Pulse Ox 92 11/06/18 12:02
[2018-11-07] MEDS: CIPROFLOXACIN 400 MG/200 ML BAG IV SCH ×2 (05:17→17:14)
[2018-11-07] MEDS: NSS + 20MEQ KCL 20 MEQ/1,000 ML BAG IV SCH ×2 (08:34→20:47)
[2018-11-07] MEDS: methylPREDNISolone 20 MG in SYRINGE 0 ML IV SCH ×2 (08:34→16:10)
[2018-11-07] MEDS: metroNIDAZOLE 500 MG/100 ML BAG IV SCH ×2 (08:34→17:14)
[2018-11-07] MEDS ORDERED: LORazepam 0.5 MG/1 ML VIAL IV STA (09:19)
--- NOTE | 2018-11-07 09:33 | Surgery Progress Note ---
Date of Service November 07, 2018 pt is still have not passed gas or bm, pt feels some nausea, no vomiting, Assessment & Plan (1) Small bowel obstruction: 11/06/2018, stable, SBO, not pass BM yet. I recommend to insertion NG Tube, but pt wants to wait, I indicated pt's symptoms may be worse without NG tube, pt understood, D/W possible surgery treatment if pt is not getting better, 11/07/2018 9:24am D/W possible surgery if pt is not getting better, but pt wants Dr. Valles to do her surgery tomorrow, even worse symptoms or possible bowel perforation, pt is still want Dr. Valles to do her surgery, pt understood result, I answered all questions, continue conservative treatment, not pass gas or BM,, recommend to insertion NG tube, pt accepted, KUB Physical Exam Vital Signs (Past 24 Hours): Last Vital Signs Temp 36.9 C 11/07/18 07:34 Pulse 80 11/07/18 07:34 Resp 18 11/07/18 07:34 BP 115/73 11/07/18 07:34 Pulse Ox 94 11/07/18 07:34 Constitutional: WD/WN, vitals as above Neck: trachea midline, no thyromegaly Respiratory: normal respiratory effort, lungs clear to auscultation Cardiovascular: RRR, no murmur, no edema Gastrointestinal (Abdomen): Percussion/Palpation: abdomen soft mild tenderness periumbilical area, no distend, BS+ Neurologic: awake Psychiatric: Orientation: alert and oriented x 3
--- NOTE | 2018-11-07 10:00 | XRay Report ---
XR KUB CLINICAL HISTORY: NEW NG INSERTION tube position COMPARISON STUDY: 11/05/2018 FINDINGS: Progressive small bowel distention. Maximum diameter has increased from 4.8 to 5.2 cm. Naso gastric tube coiled within the gastric fundus. IMPRESSION: Nasogastric tube coiled in gastric fundus. Slightly progressive small bowel distention The above report was generated using voice recognition software. It may contain grammatical, syntax or spelling errors. Electronically signed by: Myke Bush M.D. 11/07/2018 9:58 AM
--- NOTE | 2018-11-07 13:28 | Hospitalist Progress Note ---
Date of Service November 07, 2018 Assessment & Plan (1) Small bowel obstruction: Secondary to ill-defined terminal ileum/ileocecal mass Obstructive symptoms are worse Appreciate surgery evaluation Probable surgery tomorrow by Dr. Montague (2) Abdominal pain: Recent hospitalization for SBO, abdominal pain resolved with conservative treatment. Suspicion for possible IBD. Pt on cipro, flagyl, prednisone. To have GI follow up with colonoscopy on 11/11/18. Started with abdominal pain, N/V last night, reported decreased BMs Admitted with the small bowel obstruction Repeat CT scan of the abdomen and pelvis did show right lower quadrant ill- defined mass as before, likely differential Crohn's disease Continue with Cipro and Flagyl for now Appreciate surgery and GI input No colonoscopy as of yet White cell count remains elevated and will monitor-likely secondary to use of steroids Clinically a little worse today Abdominal pain is worse today with distention NG tube has been putting and low suction maintained (3) Hypokalemia: K: 3.2. Probable secondary to vomiting -replace and monitor -Potassium is normalized DVT Prophylaxis -Low risk - ambulate Full Code Likely to have surgery tomorrow morning Subjective 38-year-old female with suspected IBD admitted yesterday for persistent partial small bowel obstruction. CT scan last night essentially unchanged from prior studies. She feels better this morning, has not passed flatus. 11/05 The patient is seen and examined the medical floor He has been complaining of ongoing upper abdominal pain with little or no bowel movement Denies any fever and no chills Not any better evaluate NG tube suction 11/06 Has been complaining of more abdominal distention and discomfort Bowel has not been moving and no gas is passing Denies any nausea and/or vomiting NG tube has been taken out due to discomfort / Complains to have more abdominal distention with nausea Bowel is not moved NG tube has been inserted Does not feel any significant improvement Gastrointestinal: + abdominal pain, + bloating, + nausea and + vomiting Physical Exam Vital Signs (Past 24 Hours): Last Vital Signs Temp 36.9 C 11/07/18 07:34 Pulse 80 11/07/18 07:34 Resp 18 11/07/18 07:34 BP 115/73 11/07/18 07:34 Pulse Ox 94 11/07/18 07:34 Physical Exam: Moderate distress at rest due to abdominal discomfort Constitutional: WD/WN, vitals as above well developed, well nourished and cooperative Eyes: PERRL, conjunctivae normal, anicteric sclerae ENMT: external ear and nose normal, oropharynx normal Neck: trachea midline, no thyromegaly Respiratory: normal respiratory effort, lungs clear to auscultation Cardiovascular: RRR, no murmur, no edema Gastrointestinal (Abdomen): Inspection/Auscultation: + abdomen distended and normal bowel sounds (Sluggish) Percussion/Palpation: + abdomen tender (throughout, worse in the LUQ but no rebound or guarding), + guarding and abdomen soft; abdomen not rigid Skin: no rashes, warm and dry normal turgor; no jaundice and no dry skin Trauma: no evidence of skin trauma Neurologic: PERRL, EOMI, accommodation nl, no face palsy, no dysarthria Psychiatric: A+Ox3, euthymic affect Lymphatic: no cervical or axillary lymphadenopathy Results & Data Medications Administered Current Inpatient Medications Ciprofloxacin (Cipro) 400 mg in 200 mls @ 100 mls/hr IV Q12H ANIBAL Stop: 11/14/18 16:59 Last Infusion: 11/07/18 08:00 Dose: Infused Documented by: Metronidazole (Flagyl) 500 mg in 100 mls @ 100 mls/hr IV Q8H ANIBAL Stop: 11/08/18 16:59 Last Infusion: 11/07/18 09:30 Dose: Infused Documented by: Methylprednisolone 20 mg/ (Syringe) 0.32 mls @ 1.5 mls/min IV Q8H ANIBAL Stop: 12/05/18 15:59 Last Admin: 11/07/18 08:34 Dose: 1.5 mls/min Documented by: Potassium Chloride/Sodium Chloride (Normal Saline W/20 Meq Kcl) 20 meq in 1,000 mls @ 100 mls/hr IV .Q10H ANIBAL Stop: 12/05/18 17:44 Last Admin: 11/07/18 08:34 Dose: 100 mls/hr Documented by: Ioversol (Optiray 320 100ml) 100 ml IV ONCE PRN PRN Reason: Interaction Checking Stop: 11/09/18 02:04 Last Admin: 11/05/18 02:05 Dose: 93 ml Documented by: Morphine Sulfate (Morphine Sulfate) 3 mg IV Q3H PRN PRN Reason: Pain Stop: 11/18/18 20:19 Ondansetron HCl (Zofran) 4 mg IV Q6H PRN PRN Reason: Nausea Stop: 12/04/18 16:25
--- NOTE | 2018-11-07 14:08 | Gastroenterology Progress Note ---
Date of Service November 07, 2018 Pt with only mild abd pain, but still without flatus. Had NGT o/n with minimal drainiage and only mild relief Appears comfortable Abd remains distended and tympanic, soft, unchanged KUB reviewed A/P: Prob Crohn's with SBO no response to abx/bowel rest d #4 - Anticipate that pt will need surgery to resolve SBO. Will cont conservative care for now, and follow. Physical Exam Vital Signs (Past 24 Hours): Last Vital Signs Temp 36.9 C 11/07/18 07:34 Pulse 80 11/07/18 07:34 Resp 18 11/07/18 07:34 BP 115/73 11/07/18 07:34 Pulse Ox 94 11/07/18 07:34
[2018-11-07] MEDS ORDERED: DICYCLOMINE HCL 10 MG/ML 2 ML AMP/VIAL IM ONE (16:19)
[2018-11-08] MEDS: methylPREDNISolone 20 MG in SYRINGE 0 ML IV SCH ×4 (00:10→23:38)
[2018-11-08] MEDS: metroNIDAZOLE 500 MG/100 ML BAG IV SCH ×2 (00:10→08:17)
[2018-11-08] MEDS: CIPROFLOXACIN 400 MG/200 ML BAG IV SCH ×2 (04:23→16:20)
[2018-11-08 06:18] LABS: Basophils # (auto) 0.01 K/uL (0-0.2); Basophils % (auto) 0.1 %; Eosinophils # (auto) 0.01 K/uL (0-0.5); Eosinophils % (auto) 0.1 %; Hematocrit (blood only) 36.7 % (37-47); Hemoglobin 11.6 g/dL (12.0-16.0); Immature Granulocytes # (auto) 0.12 K/uL (0.00-0.02); Immature Granulocytes % (auto) 0.7 %; Lymphocytes # (auto) 0.98 K/uL (1.2-3.4); Lymphocytes % (auto) 6.1 %; Mean Corpuscular Hgb Conc 31.6 g/dL (32-36); Mean Corpuscular Volume 82.1 fL (80-100); Mean Platelet Volume 9.3 fL (7.4-10.4); Monocytes # (auto) 1.09 K/uL (0.11-0.59); Monocytes % (auto) 6.7 %; Neutrophils # (auto) 13.94 K/uL (1.4-6.5); Neutrophils % (auto) 86.3 %; Platelet Count 348 K/uL (130-400); RDW Standard Deviation 44.4 fL (36.4-46.3); Red Blood Count 4.47 M/uL (4.2-5.4); White Blood Count 16.15 K/uL (4.8-10.8)
[2018-11-08 06:51] LABS: Calcium 8.3 mg/dl (8.5-10.1); Creatinine Clr Calc Pharmacy 163.4 ml/min; Est GFR (African American) 134.2; Est GFR (Non-African American) 115.8; Magnesium 2.3 mg/dl (1.8-2.4)
[2018-11-08 06:53] LABS: Phosphorus 3.6 mg/dl (2.5-4.9)
[2018-11-08] MEDS: NSS + 20MEQ KCL 20 MEQ/1,000 ML BAG IV SCH ×2 (11:44→23:34)
--- NOTE | 2018-11-08 13:28 | Surgery Progress Note ---
Date of Service November 08, 2018 Assessment & Plan (1) Small bowel obstruction: not making much progress with NG, IV steroids tentatively plan for OR on Supervising Physician Co-Signing Physician Notes 38-year-old female admitted with recurrent SBO believed to be secondary to previous the undiagnosed Crohn's disease. Had NG tube reinserted over the weekend. She has not any significant pain, however she has not passed gas or had a bowel movement. We discussed her options to include continued observation versus surgery. At this point I do not feel like she is getting it better without exploration. We will tentatively plan for diagnostic laparoscopy, bowel resection, possible open on Thursday. The risks, recovery, and plan of care discussed the patient, all questions were answered, the patient expressed understanding agrees with plan of care as stated. Subjective NG replaced over the weekend for bloating, nausea, no flatus Physical Exam Vital Signs (Past 24 Hours): Last Vital Signs Temp 36.9 C 11/08/18 07:16 Pulse 89 11/08/18 07:16 Resp 14 11/08/18 07:16 BP 118/78 11/08/18 07:16 Pulse Ox 94 11/08/18 07:16 Gastrointestinal (Abdomen): Inspection/Auscultation: + abdomen distended Percussion/Palpation: abdomen soft; abdomen nontender NG 120 cc overnight
--- NOTE | 2018-11-08 13:30 | Hospitalist Progress Note ---
Date of Service November 08, 2018 Assessment & Plan (1) Small bowel obstruction: Secondary to ill-defined terminal ileum/ileocecal mass Obstructive symptoms are worse Appreciate surgery evaluation Probable surgery tomorrow by Dr. Montague Discussed with the surgical PA -surgery is trying to determine if surgery can be done tomorrow here or the patient will need to be transferred to tertiary care center Discussed with the patient (2) Abdominal pain: Recent hospitalization for SBO, abdominal pain resolved with conservative treatment. Suspicion for possible IBD. Pt on cipro, flagyl, prednisone. To have GI follow up with colonoscopy on 11/11/18. Started with abdominal pain, N/V last night, reported decreased BMs Admitted with the small bowel obstruction Repeat CT scan of the abdomen and pelvis did show right lower quadrant ill- defined mass as before, likely differential Crohn's disease Continue with Cipro and Flagyl for now Appreciate surgery and GI input No colonoscopy as of yet White cell count remains elevated and will monitor-likely secondary to use of steroids Clinically a little worse today Abdominal pain is worse today with distention NG tube suction is helping Abdominal discomfort and distention remains without any passing of gas and bowel movement (3) Hypokalemia: K: 3.2. Probable secondary to vomiting -replace and monitor -Potassium is normalized DVT Prophylaxis -Low risk - ambulate Full Code Awaiting possible surgery Subjective 38-year-old female with suspected IBD admitted yesterday for persistent partial small bowel obstruction. CT scan last night essentially unchanged from prior studies. She feels better this morning, has not passed flatus. 11/05 The patient is seen and examined the medical floor He has been complaining of ongoing upper abdominal pain with little or no bowel movement Denies any fever and no chills Not any better evaluate NG tube suction 11/06 Has been complaining of more abdominal distention and discomfort Bowel has not been moving and no gas is passing Denies any nausea and/or vomiting NG tube has been taken out due to discomfort 11/07 Complains to have more abdominal distention with nausea Bowel is not moved NG tube has been inserted Does not feel any significant improvement 11/08 Complains to have some relief of symptoms Bowel has been removed. Or she has not passed any gas Denies any fever and/or chills Awaiting possible surgery Gastrointestinal: + abdominal pain, + bloating, + nausea and + vomiting Physical Exam Vital Signs (Past 24 Hours): Last Vital Signs Temp 36.9 C 11/08/18 07:16 Pulse 89 11/08/18 07:16 Resp 14 11/08/18 07:16 BP 118/78 11/08/18 07:16 Pulse Ox 94 11/08/18 07:16 Physical Exam: Moderate distress at rest due to abdominal discomfort and distention Constitutional: WD/WN, vitals as above well developed, well nourished and cooperative Eyes: PERRL, conjunctivae normal, anicteric sclerae ENMT: external ear and nose normal, oropharynx normal Neck: trachea midline, no thyromegaly Respiratory: normal respiratory effort, lungs clear to auscultation Cardiovascular: RRR, no murmur, no edema Gastrointestinal (Abdomen): Inspection/Auscultation: + abdomen distended and normal bowel sounds (Very sluggish) Percussion/Palpation: + abdomen tender (throughout, worse in the LUQ but no rebound or guarding), + guarding and abdomen soft; abdomen not rigid Skin: no rashes, warm and dry normal turgor; no jaundice and no dry skin Trauma: no evidence of skin trauma Neurologic: PERRL, EOMI, accommodation nl, no face palsy, no dysarthria Psychiatric: A+Ox3, euthymic affect Lymphatic: no cervical or axillary lymphadenopathy Results & Data Laboratory Results Short CBC 11/08/18 Range/Units 05:50 WBC 16.15 H (4.8-10.8) K/uL Hgb 11.6 L (12.0-16.0) g/dL Hct 36.7 L (37-47) % Plt Count 348 (130-400) K/uL BMP 11/08/18 05:50 Sodium 137 Potassium 4.0 Chloride 104 Carbon Dioxide 25 BUN 12 Creatinine 0.61 Glucose 119 H Calcium 8.3 L Medications Administered Current Inpatient Medications Ciprofloxacin (Cipro) 400 mg in 200 mls @ 100 mls/hr IV Q12H ANIBAL Stop: 11/14/18 16:59 Last Infusion: 11/08/18 06:25 Dose: Infused Documented by: Metronidazole (Flagyl) 500 mg in 100 mls @ 100 mls/hr IV Q8H ANIBAL Stop: 11/08/18 16:59 Last Infusion: 11/08/18 09:17 Dose: Infused Documented by: Methylprednisolone 20 mg/ (Syringe) 0.32 mls @ 1.5 mls/min IV Q8H ANIBAL Stop: 12/05/18 15:59 Last Admin: 11/08/18 08:14 Dose: 1.5 mls/min Documented by: Potassium Chloride/Sodium Chloride (Normal Saline W/20 Meq Kcl) 20 meq in 1,000 mls @ 100 mls/hr IV .Q10H ANIBAL Stop: 12/05/18 17:44 Last Admin: 11/08/18 11:44 Dose: 100 mls/hr Documented by: Ioversol (Optiray 320 100ml) 100 ml IV ONCE PRN PRN Reason: Interaction Checking Stop: 11/09/18 02:04 Last Admin: 11/05/18 02:05 Dose: 93 ml Documented by: Morphine Sulfate (Morphine Sulfate) 3 mg IV Q3H PRN PRN Reason: Pain Stop: 11/18/18 20:19 Ondansetron HCl (Zofran) 4 mg IV Q6H PRN PRN Reason: Nausea Stop: 12/04/18 16:25
[2018-11-09] MEDS: CIPROFLOXACIN 400 MG/200 ML BAG IV SCH ×2 (05:02→16:25)
[2018-11-09] MEDS ORDERED: Nursing to Pharmacy Communication ONE (05:16)
[2018-11-09] MEDS: methylPREDNISolone 20 MG in SYRINGE 0 ML IV SCH ×2 (08:52→16:18)
[2018-11-09] MEDS: NSS + 20MEQ KCL 20 MEQ/1,000 ML BAG IV SCH ×2 (09:12)
--- NOTE | 2018-11-09 11:41 | Surgery Progress Note ---
Date of Service November 09, 2018 Assessment & Plan (1) Small bowel obstruction: no progress, will plan for OR tomorrow Supervising Physician Co-Signing Physician Notes 38-year-old female with persistent small bowel obstruction believed to be due to Crohn's disease. No progress, will plan for diagnostic laparoscopy, laparoscopic bowel resection, possible open tomorrow. Risks reviewed, questions answered, plan of care discussed with patient agrees to proceed with surgery as planned. Subjective no flatus, still bloated Physical Exam Vital Signs (Past 24 Hours): Last Vital Signs Temp 36.7 C 11/09/18 07:13 Pulse 64 11/09/18 07:13 Resp 16 11/09/18 07:13 BP 124/83 11/09/18 07:13 Pulse Ox 95 11/09/18 07:13 Gastrointestinal (Abdomen): Inspection/Auscultation: + abdomen distended Percussion/Palpation: abdomen soft
[2018-11-09] MEDS: D5NSS + 20MEQ KCL 20 MEQ/1,000 ML BAG IV SCH ×2 (13:30→22:22)
--- NOTE | 2018-11-09 17:36 | Hospitalist Progress Note ---
Date of Service November 09, 2018 Assessment & Plan (1) Small bowel obstruction: Secondary to ill-defined terminal ileum/ileocecal mass Obstructive symptoms are worse Appreciate surgery evaluation Probable surgery tomorrow by Dr. Montague Discussed with the surgical PA -surgery is trying to determine if surgery can be done tomorrow here or the patient will need to be transferred to tertiary care center Discussed with the patient No improvement with conservative measures We will have exploratory laparotomy tomorrow by Dr. Lomeli (2) Abdominal pain: Recent hospitalization for SBO, abdominal pain resolved with conservative treatment. Suspicion for possible IBD. Pt on cipro, flagyl, prednisone. To have GI follow up with colonoscopy on 11/11/18. Started with abdominal pain, N/V last night, reported decreased BMs Admitted with the small bowel obstruction Repeat CT scan of the abdomen and pelvis did show right lower quadrant ill- defined mass as before, likely differential Crohn's disease Continue with Cipro and Flagyl for now Appreciate surgery and GI input No colonoscopy as of yet White cell count remains elevated and will monitor-likely secondary to use of steroids Clinically a little worse today Abdominal pain is worse today with distention NG tube suction is helping Abdominal discomfort and distention remains without any passing of gas and bowel movement (3) Hypokalemia: K: 3.2. Probable secondary to vomiting -replace and monitor -Potassium is normalized DVT Prophylaxis -Low risk - ambulate Full Code Exploratory laparotomy tomorrow by Dr. Lomeli Subjective 38-year-old female with suspected IBD admitted yesterday for persistent partial small bowel obstruction. CT scan last night essentially unchanged from prior studies. She feels better this morning, has not passed flatus. 11/05 The patient is seen and examined the medical floor He has been complaining of ongoing upper abdominal pain with little or no bowel movement Denies any fever and no chills Not any better evaluate NG tube suction 11/06 Has been complaining of more abdominal distention and discomfort Bowel has not been moving and no gas is passing Denies any nausea and/or vomiting NG tube has been taken out due to discomfort 11/07 Complains to have more abdominal distention with nausea Bowel is not moved NG tube has been inserted Does not feel any significant improvement 11/08 Complains to have some relief of symptoms Bowel has been removed. Or she has not passed any gas Denies any fever and/or chills Awaiting possible surgery 11/09 Has been feeling a little better with NG tube suction Abdomen is less distended and pain is less today Bowel has not moved yet Gastrointestinal: + abdominal pain, + bloating, + nausea and + vomiting Physical Exam Vital Signs (Past 24 Hours): Last Vital Signs Temp 36.7 C 11/09/18 14:46 Pulse 69 11/09/18 14:46 Resp 12 11/09/18 14:46 BP 132/85 11/09/18 14:46 Pulse Ox 97 11/09/18 14:46 Physical Exam: No apparent distress at rest Constitutional: WD/WN, vitals as above well developed, well nourished and cooperative Eyes: PERRL, conjunctivae normal, anicteric sclerae ENMT: external ear and nose normal, oropharynx normal Neck: trachea midline, no thyromegaly Respiratory: normal respiratory effort, lungs clear to auscultation Cardiovascular: RRR, no murmur, no edema Gastrointestinal (Abdomen): Inspection/Auscultation: + abdomen distended and normal bowel sounds (Very sluggish) Percussion/Palpation: + abdomen tender (throughout, worse in the LUQ but no rebound or guarding), + guarding and abdomen soft; abdomen not rigid Skin: no rashes, warm and dry normal turgor; no jaundice and no dry skin Trauma: no evidence of skin trauma Neurologic: PERRL, EOMI, accommodation nl, no face palsy, no dysarthria Psychiatric: A+Ox3, euthymic affect Lymphatic: no cervical or axillary lymphadenopathy Results & Data Medications Administered Current Inpatient Medications Ciprofloxacin (Cipro) 400 mg in 200 mls @ 100 mls/hr IV Q12H ANIBAL Stop: 11/14/18 16:59 Last Admin: 11/09/18 16:25 Dose: 100 mls/hr Documented by: Methylprednisolone 20 mg/ (Syringe) 0.32 mls @ 1.5 mls/min IV Q8H ANIBAL Stop: 12/05/18 15:59 Last Admin: 11/09/18 16:18 Dose: 1.5 mls/min Documented by: Potassium Chloride/Dextrose/Sod Cl (D5nss + 20meq Kcl) 20 meq in 1,000 mls @ 125 mls/hr IV .Q8H ANIBAL Stop: 12/09/18 11:44 Last Infusion: 11/09/18 14:32 Dose: 125 mls/hr Documented by: Morphine Sulfate (Morphine Sulfate) 3 mg IV Q3H PRN PRN Reason: Pain Stop: 11/18/18 20:19 Ondansetron HCl (Zofran) 4 mg IV Q6H PRN PRN Reason: Nausea Stop: 12/04/18 16:25
[2018-11-10] MEDS: methylPREDNISolone 20 MG in SYRINGE 0 ML IV SCH ×3 (00:02→19:24)
[2018-11-10] MEDS: D5NSS + 20MEQ KCL 20 MEQ/1,000 ML BAG IV SCH ×3 (04:52→21:25)
[2018-11-10] MEDS: CIPROFLOXACIN 400 MG/200 ML BAG IV SCH ×2 (04:52→19:24)
[2018-11-10 09:15] LABS: Basophils # (auto) 0.01 K/uL (0-0.2); Basophils % (auto) 0.1 %; Eosinophils # (auto) 0.01 K/uL (0-0.5); Eosinophils % (auto) 0.1 %; Hematocrit (blood only) 39.1 % (37-47); Hemoglobin 12.3 g/dL (12.0-16.0); Immature Granulocytes # (auto) 0.12 K/uL (0.00-0.02); Immature Granulocytes % (auto) 0.8 %; Lymphocytes # (auto) 1.35 K/uL (1.2-3.4); Lymphocytes % (auto) 8.6 %; Mean Corpuscular Hgb Conc 31.5 g/dL (32-36); Mean Corpuscular Volume 82.1 fL (80-100); Mean Platelet Volume 9.3 fL (7.4-10.4); Monocytes # (auto) 1.58 K/uL (0.11-0.59); Monocytes % (auto) 10.1 %; Neutrophils # (auto) 12.63 K/uL (1.4-6.5); Neutrophils % (auto) 80.3 %; Platelet Count 369 K/uL (130-400); RDW Coefficient of Variation 14.9 % (11.5-14.5); RDW Standard Deviation 44.3 fL (36.4-46.3); Red Blood Count 4.76 M/uL (4.2-5.4)
[2018-11-10 09:53] LABS: BUN Creatinine Ratio 13.7 (10-20); Calcium 8.5 mg/dl (8.5-10.1); Est GFR (African American) 130.8; Est GFR (Non-African American) 112.9; Magnesium 2.3 mg/dl (1.8-2.4); Potassium 4.2 mmol/L (3.5-5.1)
[2018-11-10 09:55] LABS: Phosphorus 2.9 mg/dl (2.5-4.9)
--- NOTE | 2018-11-10 10:35 | Surgery Progress Note ---
Date of Service November 10, 2018 Assessment & Plan (1) Small bowel obstruction: 38-year-old female with small bowel obstruction and failure of resolution with nonoperative management. Plan for OR today. Plan for diagnostic laparoscopy, bowel resection, possible open Risk of the procedure were discussed to include but are not limited to bleeding, infection, damage surrounding structures, need for future more extensive surgery, hernia, abscess, anastomotic leak, and the risks of anesthesia Plan of care discussed the patient, all questions answered, the patient expressed understanding agrees the plan of care as stated. Subjective 38-year-old female with small bowel obstruction, believed to be secondary to Crohn's but is had no progress with steroid therapy. Still no flatus, still feels bloated. Gastrointestinal: + abdominal pain, + bloating, + nausea and + vomiting Physical Exam Vital Signs (Past 24 Hours): Last Vital Signs Temp 36.5 C 11/10/18 10:24 Pulse 73 11/10/18 10:24 Resp 16 11/10/18 10:24 BP 158/98 H 11/10/18 10:24 Pulse Ox 99 11/10/18 10:24 Constitutional: WD/WN, vitals as above Gastrointestinal (Abdomen): Inspection/Auscultation: + abdomen distended Percussion/Palpation: + abdomen tender (Moderately tender palpation in epigastric region. No guarding or rebound) and abdomen soft; no guarding Results & Data Laboratory Results Laboratory Results - last 24 hr 11/09/18 11/10/18 11/10/18 14:25 08:55 08:55 WBC 15.70 H RBC 4.76 Hgb 12.3 Hct 39.1 MCV 82.1 MCH 25.8 MCHC 31.5 L RDW Std Deviation 44.3 RDW Coeff of Celio 14.9 H Plt Count 369 MPV 9.3 Immature Gran % (Auto) 0.8 Neut % (Auto) 80.3 Lymph % (Auto) 8.6 [place] % (Auto) 10.1 Eos % (Auto) 0.1 Baso % (Auto) 0.1 Immature Gran # (Auto) 0.12 H Neut # (Auto) 12.63 H Lymph # (Auto) 1.35 [place] # (Auto) 1.58 H Eos # (Auto) 0.01 Baso # (Auto) 0.01 Sodium 140 Potassium 4.2 Chloride 107 Carbon Dioxide 27 Anion Gap 6.0 BUN 9 Creatinine 0.66 Est Cr Clr Drug Dosing 151.0 Est GFR ( Amer) 130.8 Est GFR (Non-Af Amer) 112.9 BUN/Creatinine Ratio 13.7 Glucose 108 H Calcium 8.5 Phosphorus 2.9 Magnesium 2.3 Blood Type A Positive Antibody Screen NEGATIVE
--- NOTE | 2018-11-10 12:10 | Anesthesiology Consultation ---
Date of Service November 10, 2018 Assessment & Plan Chart Review Chart Review: Acceptable Risk for Surgery and Patient NOT seen in Pre Admission Testing Consults Requested none ASA ASA2E Proposed Anesthesia Anesthesia Type: General Risk / Benefits Reviewed With: PT / POA / Parent / Guardian, Accepts Plan and Informed Consent Obtained NPO Date Last Intake of Fluids: 11/03/18 Time Last Intake of Fluids: 19:00 Date Last Intake of Solids: 11/04/18 Time Last Intake of Solids: 09:00 History Surgery Operation Date: 11/10/18 11:00 Proposed Procedures p Diagnostic Laparoscopy, Laparoscopic Bowel Resection, Possible Open - Shlomo Lomeli DO, FACS Height/Weight Height: 5 ft 8 in Weight: 109.1 kg Allergies Allergy/AdvReac Type Severity Reaction Status Date / Time No Known Allergies Allergy Verified 11/04/18 11:43 Medications Home Medications Medication Instructions Recorded Confirmed Last Taken multivitamin 1 tab PO QAM 10/18/18 11/04/18 10/28/18 ciprofloxacin HCl 500 mg PO BID #30 tab 10/23/18 11/04/18 11/03/18 21:00 metronidazole [Flagyl] 500 mg PO BID #10 tab 10/23/18 11/04/18 11/01/18 acetaminophen [Tylenol Extra 1,000 mg PO Q6H PRN 11/04/18 11/04/18 11/04/18 03:00 Strength] prednisone 80 mg PO QAM 11/04/18 11/04/18 11/04/18 Active Medications Generic Name Dose Route Start Last Admin Trade Name Freq PRN Reason Stop Dose Admin Ciprofloxacin 400 mg in 200 mls @ 100 mls/hr 11/04/18 17:00 11/10/18 06:52 Cipro IV 11/14/18 16:59 Infused Q12H ANIBAL Infusion Methylprednisolone 20 mg/ 0.32 mls @ 1.5 mls/min 11/05/18 16:00 11/10/18 08:31 Syringe IV 12/05/18 15:59 1.5 mls/min Q8H ANIBAL Administration Potassium Chloride/Dextrose/Sod Cl 20 meq in 1,000 mls @ 125 mls/hr 11/09/18 11:45 11/10/18 05:34 D5nss + 20meq Kcl IV 12/09/18 11:44 125 mls/hr .Q8H ANIBAL Infusion Past Medical History Medical History Small bowel obstruction (Acute) Cellulitis of left knee (Resolved) Gall bladder disease (Resolved) Vertigo (Resolved) Past Family History Family History Other Coronary heart disease Hypertension Lung cancer Pancreatic cancer Past Surgical History Surgical History History of cholecystectomy (Chronic) [place] teeth extracted (Resolved) Past Anesthesia History No Hx of Anesthesia Complications and No Family Hx of Anesthesia Complications History of PONV No Motion Sickness Screening History of Motion Sickness: No Social History Smoking Status: Never smoker Do You Dip or Chew Tobacco: No Hx Alcohol Use: Yes Alcohol type: wine alcohol intake frequency: a few times a month Hx Substance Use: No substance use type: does not use Exercise / Class Metabolic Activity II 4-5 Yardwork/Stairs/Walk up hill Physical Exam Vital Signs Last Vital Signs Temp 36.5 C 11/10/18 10:24 Pulse 73 11/10/18 10:24 Resp 16 11/10/18 10:24 BP 158/98 H 11/10/18 10:24 Pulse Ox 99 11/10/18 10:24 ENMT Mouth: no dentition abnormality Thyromental Distance: > or= 3.5 Finger Breadths Mallampati Class: II Neck normal visual inspection and trachea midline; neck extension not limited Respiratory normal respiratory effort Auscultation: lungs clear to auscultation bilaterally Cardiovascular Rate/Rhythm: regular rate and regular rhythm Heart Sounds: no murmur Vessels: no carotid bruit Musculoskeletal Spine: normal cervical ROM Neurologic moves all extremities Motor/Sensory: no sensory deficit Psychiatric Orientation: alert and oriented x 3 Testing Laboratory Results 11/10/18 08:55 11/10/18 08:55 Blood Type A Positive 11/09/18 14:25 Antibody Screen NEGATIVE 11/09/18 14:25 Urine Color Dark Yellow 11/04/18 11:35 Urine Appearance Cloudy (Clear) H 11/04/18 11:35 Urine pH 7.5 (4.5-7.5) 11/04/18 11:35 Ur Specific [place] 1.024 (1.000-1.030) 11/04/18 11:35 Urine Protein Negative (Negative) 11/04/18 11:35 Urine Glucose (UA) Negative (Negative) 11/04/18 11:35 Urine Ketones Trace (Negative) H 11/04/18 11:35 Urine Nitrite Negative (Negative) 11/04/18 11:35 Ur Leukocyte Esterase 1+ (Negative) H 11/04/18 11:35 Urine WBC (Auto) 5-10 /hpf (0-5) H 11/04/18 11:35 Urine RBC (Auto) >30 /hpf (0-4) H 11/04/18 11:35 U Hyaline Cast (Auto) 10-30 /lpf (0-5) H 11/04/18 11:35 U Epithel Cells (Auto) >30 /lpf (0-5) H 11/04/18 11:35 Urine Bacteria (Auto) 1+ (Negative) H 11/04/18 11:35 11/04/18 11:35 Urine Culture - Final Urine,Clean Catch Coag neg staph not saprophytic Lactobacillus species 11/04/18 11:35 POC Ur Test NEG
[2018-11-10] MEDS ORDERED: PROPOFOL IV EMULSION 10 MG/ML 20 ML VIAL IV ONE (12:30)
[2018-11-10] MEDS ORDERED: ROCURONIUM BROMIDE 10 MG/ML 5 ML VIAL ONE (12:30)
[2018-11-10] MEDS ORDERED: fentaNYL citrate 100 MCG/2 ML VIAL ONE ×3 (12:30→13:56)
[2018-11-10] MEDS ORDERED: MIDAZOLAM HCL 1 MG/ML 2ML VIAL ONE (12:30)
[2018-11-10] MEDS ORDERED: ONDANSETRON INJ 2 MG/ML 2 ML VIAL ONE (12:30)
[2018-11-10] MEDS ORDERED: LIDOCAINE HCL 2% 2 ML VIAL/AMP(20MG/ML) INFIL ONE (12:30)
[2018-11-10] MEDS ORDERED: BUPIVACAINE 0.5 % 5 MG/1 ML MPF 30ML VIAL ONE (12:38)
[2018-11-10] MEDS ORDERED: BUPIVACAINE LIPOSOME 1.3% 266 MG/20 ML VIAL ONE (12:38)
[2018-11-10] MEDS ORDERED: ePHEDrine sulfate 50 MG/ML AMP IV PRN (13:51)
[2018-11-10] MEDS ORDERED: PROMETHAZINE HCL 12.5 MG in SODIUM CHLORIDE 0.9% 50 ML IV PRN (13:51)
[2018-11-10] MEDS ORDERED: ATROPINE SULFATE 0.1 MG/ML 10ML SYR IV PRN (13:51)
[2018-11-10] MEDS ORDERED: ONDANSETRON INJ 2 MG/ML 2 ML VIAL IV PRN (13:51)
[2018-11-10] MEDS ORDERED: NALOXONE HCL 0.4 MG/1 ML VIAL/CARP IV PRN ×2 (13:51→18:48)
[2018-11-10] MEDS ORDERED: FLUMAZENIL 0.1 MG/1 ML 10 ML VIAL IV PRN (13:51)
[2018-11-10] MEDS ORDERED: LABETALOL HCL IV 5 MG/ML 20ML IV PRN (13:51)
[2018-11-10] MEDS ORDERED: CISATRACURIUM BESYLATE IV SOLN 2 MG/ML 10 ML VIAL IV ONE (14:09)
[2018-11-10] MEDS ORDERED: HYDROmorphone INJ 2 MG/ML SYR/VIAL ONE (14:14)
[2018-11-10] MEDS ORDERED: CEFAZOLIN 2000MG 2,000 MG/15 ML SYR IV ONE (14:32)
--- NOTE | 2018-11-10 17:01 | Post Operative Brief Note ---
Immediate Post Op Note v1 Date of Surgery November 10, 2018 Pre & Post Diagnosis Operation Date: 11/10/18 11:00 Pre-Op Diagnosis: small bowel obstruction Post-Op Diagnosis: small bowel obstruction and endometrosis Procedure Operation Date: 11/10/18 11:00 Actual Procedures p Diagnostic Laparoscopy, Open Bowel Resection, Ileocecectomy(Not Applicable) - Shlomo Lomeli DO, FACS Surgeon Shlomo Lomeli DO, MICHELLE Director Of Employee Development Bruce Garcia Estimated Blood Loss 40 Findings Consistent with Post-Op Diagnosis Dilated small bowel with focal transition point the ileocecal valve. The right ovary and fallopian tube, distal ileum, and colon were all densely adhesed, converted to open. Ileocecectomy performed, frozen section revealed endometrioma. [id number] functional end-to-end anastomosis performed, mesenteric defect closed. Exparel injected. Specimens Ileocecectomy Small bowel Drains Ingram Catheter Anesthesia Type General Complications none Disposition Accompanied Patient To Recovery: No Disposition: Recovery Room
[2018-11-10] MEDS: HYDROmorphone INJ 1 MG/ML SYRINGE IV PRN ×12 (17:17→18:15)
--- NOTE | 2018-11-10 17:18 | Operative Report ---
Post Operative Report Pre & Post Diagnosis Operation Date: 11/10/18 11:00 Pre-Op Diagnosis: small bowel obstruction Post-Op Diagnosis: small bowel obstruction and endometrosis Procedure Operation Date: 11/10/18 11:00 Actual Procedures p Diagnostic Laparoscopy, Open Bowel Resection, Ileocecectomy(Not Applicable) - Shlomo Lomeli DO, MICHELLE Surgeon Shlomo Lomeli DO, MICHELLE Director [facility] Bruce Garcia Estimated Blood Loss 40 Findings Consistent with Post-Op Diagnosis Dilated small bowel with focal transition point the ileocecal valve. The right ovary and fallopian tube, distal ileum, and colon were all densely adhesed, converted to open. Ileocecectomy performed, frozen section revealed endometrioma. [id number] functional end-to-end anastomosis performed, mesenteric defect closed. Exparel injected. Specimens Ileocecectomy Ileum Complications none Disposition Accompanied Patient To Recovery: No Disposition: Recovery Room Indications 38-year-old female with persistent small bowel obstruction believed to be s econdary to Crohn's disease refractory to steroid therapy. Plan for diagnostic laparoscopy, laparoscopic bowel resection, possible open. The risks of the procedure were discussed, all questions were answered, and the patient agreed to proceed with surgery as planned. Description of Procedure The patient was properly identified, consented, and taken to the operating room where she was placed in the supine position. General endotracheal anesthesia was induced. SCDs and a safety belt were placed. Preoperative antibiotics were administered. A Ingram catheter was placed. The patient's abdomen was prepped and draped in the standard sterile fashion. Surgical timeout was performed and all parties were in agreement that this was the correct patient and procedure to be performed and we continued as planned. A stab incision was made in the left upper quadrant and the Veress needle was inserted. Saline drop test confirmed entry into the peritoneum. The abdomen was insufflated with carbon dioxide which the patient tolerated without incident. The abdomen was then entered using the Optiview technique and a 5 mm trocar. The laparoscope was inserted and no damage from initial trocar or Veress needle placement was noted, no gross abnormalities were noted within the 4 quadrants of the abdomen. 5 mm ports were then placed in the left lower quadrant, just above the umbilicus through her old incision, and in the suprapubic midline. Patient was placed in Trendelenburg position and rotated to the left. The bowel was dilated throughout. We were able to follow the small bowel to the terminal ileum where it appeared to pass just inferior to the cecum and was densely adhesed to both the right ovary, right fallopian tube, abdominal wall, and cecum. It was difficult to appreciate a specific mass but was very firm at the base of the cecum. I also was unable to identify the appendix. We mobilized the right colon by taking down the white line of Toldt. We were unable to make successful progress laparoscopically so a midline incision was made. We initially attempted to perform hand-assisted laparoscopy, but even with this we were unable to make much progress. The laparotomy incision was extended and we proceeded to dissect the cecum and small bowel free from the ovary, fallopian tube, and abdominal wall. Once this was freed there was dense scarring and sclerosis at the base of the cecum involving the small bowel. We decided to then perform an ileocecectomy. The ileum and ascending colon were both divided using purple loaded staplers. The mesentery was divided down to the base of the ileocecal vein and artery using harmonic. The ileocecal vein and artery were individually suture ligated with a 2-0 silk suture. Hemostasis appeared to be good. The specimen was sent for frozen section. It later returned endometrioma. The remaining distal ileum and the bowel was significantly dilated. We then opened the bowel and suctioned out almost 1 L of feculent succus. The bowel was then milked and decompressed. This portion of bowel had a slightly dusky appearance small hematoma in the mesentery and I resected another 10 cm of ileum. The mesentery was again taken with the harmonic and hemostasis was good. We then performed a [id number] functional end-to-end ileocolic anastomosis using Endo CHRISTIAN staplers. After completion of the initial anastomosis, it appeared that there was a slight twisting of the mesentery and we resected the anastomosis and repeated it. Enterotomies were made in the antimesenteric border of the colon and small bowel. 2 sequential fires of the purple loaded 60 mm CHRISTIAN stapler were used to create the anastomosis. The common enterotomy was then closed with a running 3-0 PDS suture. The suture line and staple lines were reinforced with interrupted 3-0 silk Lembert sutures. The anastomosis was widely patent and appeared to have excellent blood flow. The mesenteric defect was closed with a 2-0 Vicryl running suture. The abdomen was irrigated and hemostasis found to be good. Exparel mixed with half percent Marcaine was injected into the fascia and subcutaneous tissues. The fascia was closed with a running #1 PDS x2. The wound was irrigated and the skin was closed with interrupted 3-0 Vicryl deep dermal sutures followed by mari. The port site incisions were closed with mari. A sterile dressing was applied. The patient was extubated in the operating room and taken to the PACU where she recovered without apparent incident. All sponge, instrument, and needle counts were correct. The patient tolerated the procedure well. I attest to the content of the Intraoperative Record and any orders documented therein. Any exceptions are noted below.
--- NOTE | 2018-11-10 18:35 | Anesthesiology Progress Note ---
Date of Service November 10, 2018 Anesthesia Post Procedure Vital Signs Vital Signs: Temp Pulse Pulse Resp BP Pulse Ox 11/10/18 18:18 36.1 C L 92 H 12 125/88 94 11/10/18 18:05 89 12 121/89 94 11/10/18 17:55 88 22 105/79 95 11/10/18 17:45 82 16 114/79 96 11/10/18 17:35 87 25 H 106/85 100 11/10/18 17:25 80 16 119/83 100 11/10/18 17:15 83 15 108/75 100 11/10/18 17:09 36.3 C L 86 14 118/80 100 11/10/18 10:24 36.5 C 73 16 158/98 H 99 11/10/18 07:27 36.7 C 74 18 130/80 97 11/09/18 23:41 36.8 C 58 L 16 120/72 95 Pain Intensity Abdomen: Pain Intensity: 3 Notes Mental Status: alert / awake / arousable and participated in evaluation Patient Amnestic to Procedure: Yes Nausea / Vomiting: adequately controlled Pain: adequately controlled Airway Patency, RR, SpO2: stable & adequate BP & HR: stable & adequate Hydration State: stable & adequate Anesthetic Complications: no major complications apparent and Pt Satisfied with anesthetic care
[2018-11-10] MEDS ORDERED: HYDROmorphone HCL 0.5MG/ML 50 ML CASSETTE IV PRN (18:48)
--- NOTE | 2018-11-10 20:50 | Hospitalist Progress Note ---
Date of Service November 10, 2018 Assessment & Plan (1) Small bowel obstruction: Failed conservative measures S/P Diagnostic Laparoscopy, Open Bowel Resection, Ileocecectomy POD #0 SBO and endometriosis Pathology pending Appreciate Surgery help Pain control NG tube for now (2) Abdominal pain: Recent hospitalization for SBO, abdominal pain resolved with conservative treatment. Suspicion for possible IBD. On Cipro, Solu medrol--need to taper (3) Hypokalemia: Resolved monitor DVT Px: Lovenox SQ Code Status Full Code Subjective Patient is seen and examine after surgery while in PACU States having abd pain at surgical site Denies chest pain, SOB, dizziness, nausea Offers no other complaints Gastrointestinal: + abdominal pain, + bloating, + nausea and + vomiting Physical Exam Vital Signs (Past 24 Hours): Last Vital Signs Temp 36.6 C 11/10/18 19:46 Pulse 95 H 11/10/18 19:46 Resp 18 11/10/18 19:46 BP 108/80 11/10/18 19:46 Pulse Ox 97 11/10/18 19:46 Physical Exam: Physical Exam: Vitals signs as noted above General Appearance:Obese, no apparent distress Head: normocephalic, Atraumatic Eyes: normal inspection, EOMI Neck: supple, Trachea midline Respiratory/Chest: Normal breath sounds, CTA Cardiovascular: S1, S2, No murmur Abdomen/GI:Soft, mild tender, Bowel sounds present, surgical site in dressing Extremities/Musculoskelatal:normal inspection, no edema Neurologic/Psych:AAOX3, grossly no focal neurological deficits Skin: normal color, warm Results & Data Laboratory Results Short CBC 11/10/18 Range/Units 08:55 WBC 15.70 H (4.8-10.8) K/uL Hgb 12.3 (12.0-16.0) g/dL Hct 39.1 (37-47) % Plt Count 369 (130-400) K/uL BMP 11/10/18 08:55 Sodium 140 Potassium 4.2 Chloride 107 Carbon Dioxide 27 BUN 9 Creatinine 0.66 Glucose 108 H Calcium 8.5
[2018-11-10] MEDS ORDERED: SODIUM CHLORIDE 0.9% 1000ML 1,000 ML IV SCH (21:00)
[2018-11-10] MEDS: ACETAMINOPHEN 1,000 MG/100 ML VIAL IV SCH (21:37)
[2018-11-11] MEDS: KETOROLAC 30 MG/ML VIAL IV PRN ×3 (00:10→16:46)
[2018-11-11] MEDS ORDERED: Nursing to Pharmacy Communication ONE (01:28)
[2018-11-11] MEDS: D5NSS + 20MEQ KCL 20 MEQ/1,000 ML BAG IV SCH ×2 (03:06→12:07)
[2018-11-11] MEDS: methylPREDNISolone 20 MG in SYRINGE 0 ML IV SCH ×2 (03:07→12:08)
[2018-11-11] MEDS: ACETAMINOPHEN 1,000 MG/100 ML VIAL IV SCH ×3 (05:28→21:37)
[2018-11-11] MEDS: CIPROFLOXACIN 400 MG/200 ML BAG IV SCH ×2 (05:45→16:29)
[2018-11-11 08:27] LABS: Basophils # (auto) 0.01 K/uL (0-0.2); Eosinophils # (auto) 0.01 K/uL (0-0.5); Hematocrit (blood only) 35.5 % (37-47); Hemoglobin 11.2 g/dL (12.0-16.0); Immature Granulocytes # (auto) 0.18 K/uL (0.00-0.02); Immature Granulocytes % (auto) 0.8 %; Lymphocytes # (auto) 0.91 K/uL (1.2-3.4); Lymphocytes % (auto) 4.1 %; Mean Corpuscular Hgb Conc 31.5 g/dL (32-36); Mean Corpuscular Volume 82.2 fL (80-100); Mean Platelet Volume 9.4 fL (7.4-10.4); Monocytes # (auto) 2.07 K/uL (0.11-0.59); Monocytes % (auto) 9.4 %; Neutrophils # (auto) 18.84 K/uL (1.4-6.5); Neutrophils % (auto) 85.7 %; Platelet Count 310 K/uL (130-400); RDW Coefficient of Variation 15.2 % (11.5-14.5); RDW Standard Deviation 45.5 fL (36.4-46.3); Red Blood Count 4.32 M/uL (4.2-5.4); White Blood Count 22.02 K/uL (4.8-10.8)
--- NOTE | 2018-11-11 08:51 | Surgery Progress Note ---
Date of Service November 11, 2018 Assessment & Plan (1) Small bowel obstruction: adhesion RLQ due to endometriosis anticipate bowel function to return slow, start PPN steroid taper NICHOLAS d/c saravia ambulate PRP pending Subjective pain control good, no flatus Physical Exam Vital Signs (Past 24 Hours): Last Vital Signs Temp 36.8 C 11/11/18 07:30 Pulse 91 H 11/11/18 07:30 Resp 16 11/11/18 07:30 BP 110/80 11/11/18 07:30 Pulse Ox 95 11/11/18 07:30 Gastrointestinal (Abdomen): Inspection/Auscultation: + abdomen distended and + abdominal surgical incision (dry dressing) Percussion/Palpation: abdomen soft NG 110, UOP 250 overnight
[2018-11-11 09:00] LABS: BUN Creatinine Ratio 13.2 (10-20); Calcium 7.3 mg/dl (8.5-10.1); Creatinine Clr Calc Pharmacy 171.9 ml/min; Est GFR (African American) 136.5; Est GFR (Non-African American) 117.8
[2018-11-11] MEDS: ENOXAPARIN INJ 40 MG/0.4 ML SYR SQ SCH (10:14)
[2018-11-11] MEDS: metroNIDAZOLE 500 MG/100 ML BAG IV SCH ×2 (10:19→19:41)
[2018-11-11] MEDS ORDERED: TPN/PPN CONSULT PHARMACY SCH (10:39)
--- NOTE | 2018-11-11 14:18 | Pharmacy Report ---
Pharmacy PN Initial Consult - Date of Service November 11, 2018 - Scope Pharmacy has been consulted to manage parenteral nutrition orders and order appropriate labs. As part of the Nutrition Support Team guidelines, pharmacy will work in conjunction with dietary when determining the patients caloric needs. - Subjective The patient is a 38 year old F admitted on 11/04/18 13:49 for SBO. Patient is to receive parenteral nutrition for inadequate PO intake x 7 days, SBO s/p exp lap with CARMEN. Pertinent PMH: * h/o prior SBO treated conservatively * ? IBD - Objective Height: 5 ft 8 in Weight: 109.1 kg Diet: NPO (NPO except ice chips) Intake & Output (Last 24Hrs): Intake & Output U.O. ~0.5mL/kg/hr thus far today +2.7L fluid balance last 24 hrs Additional Fluid Losses/Gains:: D5NS + 20mEq KCl @150cc/hr Ciprofloxacin + Metronidazole IV abx Laboratory Data (Last 24 Hrs):: 11/11/18 08:06 Sodium 137 Potassium 4.0 Chloride 105 Carbon Dioxide 24 BUN 8 Creatinine 0.58 L Glucose 144 H Calcium 7.3 L Recent Pertinent Medications:: Solu-medrol IV Nutrition Assessment:: Please refer to the Notes section of the EMR for the most recent warehouse packer note. - Assessment Patient admitted on 11/04 for NV, abd pain. Found to have SBO secondary to adhesions/endometriosis. Patient states she had been in her usual state of health up until the date of admission. She had been eating well and denied any weight loss or poor dietary habits of the last month or two. Patient had exp lap w/ CARMEN on 11/10/18. Surgery anticipates bowel fxn to return slowly. Patient currently only has peripheral access and there is no order for central line at this time. IV team did evaluate peripheral access and stated OK for PPN. NG tube in place this AM, to LIS. No surgical drains in place. Per provider's assessments, no pedal edema, lungs clear bilaterally. Oxygenating well on RA. VSS. U.O. adequate and SCr stable. No know h/o cardiac or renal issues. Maint IVF's will be d/c'd when 1st bag of PPN hung. E-lytes reviewed: no replacement required today. Glu elevated on PRP. Suspect pt does have some degree of insulin resistance that is worsened by IV steroids. Will check BSGs with first bag of PPN. Will add a small dose of Regular insulin to first bag of PPN to be proactive. If patient requires parenteral nutrition supplementation beyond 2-3 days, would suggest giving consideration to central IV access as PPN will not be able to provide goal calories and could create e-lyte abnormalities due to the large amounts of free water required to deliver calories. With NGT in place set to LIS, PPN will place her at risk for hyponatremia. - Plan For day 1 of PN administration, the following will be ordered: Macronutrients Amino acids 60 grams/day Dextrose 150 grams/day Lipids 25 grams/day Micronutrients Combined electrolytes 0 mL - contains 35 mEq Na, 20 meq K, 4.5 mEq Ca, 5 mEq Mg, 35 mEq Cl, 29.5 mEq acetate per 20 mL Sodium phosphate 0 MMol Sodium chloride 100 mEq Sodium acetate 40 mEq Potassium phosphate 21 mMol Potassium chloride 50 mEq Potassium acetate 0 mEq Magnesium sulfate 12.18 mEq Calcium gluconate 0 mEq Multivitamins 10 mL Trace Elements 1 mL Additional additives: Regular Insulin 10 units Total volume 3000 mL to be infused over 24 hrs (125cc/hr) will provide 1000 kcal/day Final osmolarity 585.5 mOsm/L (maximum for PPN is 600 mOsm/L) Labs to be ordered per PN order protocol Pharmacy will follow and adjust parenteral nutrition orders on a daily basis. Thank you.
[2018-11-11] MEDS ORDERED: [UNRECOGNIZED DRUG - REMARK] ONE (15:59)
[2018-11-11] MEDS ORDERED: CUSTOM PERIPHERAL PN IV SCH (16:00)
--- NOTE | 2018-11-11 19:21 | Hospitalist Progress Note ---
Date of Service November 11, 2018 Assessment & Plan (1) Small bowel obstruction: Failed conservative measures S/P Diagnostic Laparoscopy, Open Bowel Resection, Ileocecectomy POD #1 SBO and endometriosis Pathology pending Appreciate Surgery help Pain control Plan to start PPN On Cipro and flagyl (2) Abdominal pain: Recent hospitalization for SBO, abdominal pain resolved with conservative treatment. Suspicion for possible IBD. Taper Solu-medrol to Prednisone as able (3) Hypokalemia: Resolved monitor DVT Px: Lovenox SQ Code Status Full Code Subjective Patient is seen and examine at bedside Abd pain is controlled No flatus, BM yet Denies nausea Also chest pain, SOB, dizziness Physical Exam Vital Signs (Past 24 Hours): Last Vital Signs Temp 36.8 C 11/11/18 19:05 Pulse 80 11/11/18 19:05 Resp 18 11/11/18 19:05 BP 117/73 11/11/18 19:05 Pulse Ox 96 11/11/18 19:05 Physical Exam: Physical Exam: Vitals signs as noted above General Appearance:Obese, no apparent distress Head: normocephalic, Atraumatic Eyes: normal inspection, EOMI Neck: supple, Trachea midline Respiratory/Chest: Normal breath sounds, CTA Cardiovascular: S1, S2, No murmur Abdomen/GI:Soft, mild tender, Bowel sounds present, surgical site in dressing Extremities/Musculoskelatal:normal inspection, no edema Neurologic/Psych:AAOX3, grossly no focal neurological deficits Skin: normal color, warm Results & Data Laboratory Results Short CBC 11/11/18 Range/Units 08:06 WBC 22.02 H (4.8-10.8) K/uL Hgb 11.2 L (12.0-16.0) g/dL Hct 35.5 L (37-47) % Plt Count 310 (130-400) K/uL BMP 11/11/18 08:06 Sodium 137 Potassium 4.0 Chloride 105 Carbon Dioxide 24 BUN 8 Creatinine 0.58 L Glucose 144 H Calcium 7.3 L
[2018-11-11] MEDS: HYDROmorphone INJ 0.5 MG/0.5 ML SYR IV PRN (21:38)
[2018-11-12] MEDS: metroNIDAZOLE 500 MG/100 ML BAG IV SCH ×3 (02:26→18:48)
[2018-11-12] MEDS: KETOROLAC 30 MG/ML VIAL IV PRN ×2 (02:27→10:22)
[2018-11-12] MEDS: ACETAMINOPHEN 1,000 MG/100 ML VIAL IV SCH ×3 (05:23→21:37)
[2018-11-12] MEDS: CIPROFLOXACIN 400 MG/200 ML BAG IV SCH ×2 (05:24→16:20)
[2018-11-12 07:33] LABS: Basophils # (auto) 0.01 K/uL (0-0.2); Basophils % (auto) 0.1 %; Eosinophils # (auto) 0.09 K/uL (0-0.5); Eosinophils % (auto) 0.6 %; Hematocrit (blood only) 29.2 % (37-47); Hemoglobin 9.4 g/dL (12.0-16.0); Immature Granulocytes # (auto) 0.12 K/uL (0.00-0.02); Immature Granulocytes % (auto) 0.8 %; Lymphocytes # (auto) 1.66 K/uL (1.2-3.4); Lymphocytes % (auto) 11.7 %; Mean Corpuscular Hgb Conc 32.2 g/dL (32-36); Mean Corpuscular Volume 83.2 fL (80-100); Mean Platelet Volume 9.2 fL (7.4-10.4); Monocytes # (auto) 1.26 K/uL (0.11-0.59); Monocytes % (auto) 8.9 %; Neutrophils # (auto) 11.03 K/uL (1.4-6.5); Neutrophils % (auto) 77.9 %; Platelet Count 235 K/uL (130-400); RDW Coefficient of Variation 15.4 % (11.5-14.5); RDW Standard Deviation 46.2 fL (36.4-46.3); Red Blood Count 3.51 M/uL (4.2-5.4); White Blood Count 14.17 K/uL (4.8-10.8)
[2018-11-12 08:09] LABS: BUN Creatinine Ratio 13.2 (10-20); Calcium 7.2 mg/dl (8.5-10.1); Creatinine Clr Calc Pharmacy 191.7 ml/min; Est GFR (African American) 141.5; Est GFR (Non-African American) 122.1; Magnesium 2.2 mg/dl (1.8-2.4); Potassium 3.8 mmol/L (3.5-5.1)
[2018-11-12 08:10] LABS: Phosphorus 1.6 mg/dl (2.5-4.9)
[2018-11-12] MEDS ORDERED: SODIUM PHOSPHATE 3 MMOL/1 ML INFUSION IV STA (08:48)
[2018-11-12] MEDS: ENOXAPARIN INJ 40 MG/0.4 ML SYR SQ SCH (08:58)
[2018-11-12] MEDS: methylPREDNISolone 20 MG in SYRINGE 0 ML IV SCH (08:59)
[2018-11-12] MEDS ORDERED: SODIUM PHOSPHATE 15 MMOL in SODIUM CHLORIDE 0.9% 250 ML IV ONE (09:30)
--- NOTE | 2018-11-12 09:41 | Surgery Progress Note ---
Date of Service November 12, 2018 Assessment & Plan (1) Small bowel obstruction: POD#2 ileocectomy for sbo, doing well, passed flatus clamp ng tube, remove if tolerates at noon clear liquids advance to low fiber diet as tolerated decrease ivf's po pain meds ambulate, is continue lovenox hct decrease likely dilutional taper steroids follow up in 10-14 days from surgery in surgery clinic Dr. Mendoza following over weekend Present on Admission?: Yes Subjective POD#2 ileocecectomy with anastomosis for sbo, frozen section showed endometriosis. Doing well, some discomfort from incision but no pain. Passed flatus overnight. Feels better than prior to surgery. Physical Exam Vital Signs (Past 24 Hours): Last Vital Signs Temp 36.8 C 11/12/18 07:31 Pulse 79 11/12/18 07:31 Resp 18 11/12/18 07:31 BP 122/77 11/12/18 07:31 Pulse Ox 99 11/12/18 07:31 Constitutional: WD/WN, vitals as above Gastrointestinal (Abdomen): incisions with mari, no e/o infection or hernia. soft, appropriately ttp, no guarding, less distention. NG with 200cc overnight Results & Data Laboratory Results Laboratory Results - last 24 hr 11/11/18 11/11/18 11/12/18 18:05 23:57 05:29 WBC RBC Hgb Hct MCV MCH MCHC RDW Std Deviation RDW Coeff of Celio Plt Count MPV Immature Gran % (Auto) Neut % (Auto) Lymph % (Auto) [place] % (Auto) Eos % (Auto) Baso % (Auto) Immature Gran # (Auto) Neut # (Auto) Lymph # (Auto) [place] # (Auto) Eos # (Auto) Baso # (Auto) Sodium Potassium Chloride Carbon Dioxide Anion Gap BUN Creatinine Est Cr Clr Drug Dosing Est GFR ( Amer) Est GFR (Non-Af Amer) BUN/Creatinine Ratio Glucose POC Glucose 112 H 106 H 89 Calcium Phosphorus Magnesium Triglycerides 11/12/18 11/12/18 07:15 07:15 WBC 14.17 H RBC 3.51 L Hgb 9.4 L Hct 29.2 L MCV 83.2 MCH 26.8 MCHC 32.2 RDW Std Deviation 46.2 RDW Coeff of Celio 15.4 H Plt Count 235 MPV 9.2 Immature Gran % (Auto) 0.8 Neut % (Auto) 77.9 Lymph % (Auto) 11.7 [place] % (Auto) 8.9 Eos % (Auto) 0.6 Baso % (Auto) 0.1 Immature Gran # (Auto) 0.12 H Neut # (Auto) 11.03 H Lymph # (Auto) 1.66 [place] # (Auto) 1.26 H Eos # (Auto) 0.09 Baso # (Auto) 0.01 Sodium 140 Potassium 3.8 Chloride 106 Carbon Dioxide 31 Anion Gap 3.0 BUN 7 Creatinine 0.52 L Est Cr Clr Drug Dosing 191.7 Est GFR ( Amer) 141.5 Est GFR (Non-Af Amer) 122.1 BUN/Creatinine Ratio 13.2 Glucose 102 H POC Glucose Calcium 7.2 L Phosphorus 1.6 L D Magnesium 2.2 Triglycerides 80
--- NOTE | 2018-11-12 10:18 | Pharmacy Report ---
PHA: Parenteral Nutrition Con - Date of Service November 12, 2018 - Scope Pharmacy was consulted on [DATE] to manage parenteral nutrition orders for this patient. - Subjective The patient is currently on day [#] of [peripheral or central] parenteral nutrition for [INDICATION]. - Objective Height: 5 ft 8 in Weight: 109.1 kg Diet: NPO (NPO except ice chips) Vascular Access:: peripheral Intake & Output (24hrs):: Intake & Output 11/10/18 11/11/18 11/12/18 11/13/18 06:59 06:59 06:59 06:59 Intake Total 3215.000 / 3215.000 4175.0 / 4175.0 2690.000 / 2690.000 200 / 200 Output Total 440 / 440 1350 / 1350 1850 / 1850 450 / 450 Balance 2775.000 / 2775.000 2825.0 / 2825.0 840.000 / 840.000 -250 / -250 Weight 109.1 kg 109.1 kg Laboratory Data (Last 24 Hr):: 11/12/18 07:15 Sodium 140 Potassium 3.8 Chloride 106 Carbon Dioxide 31 BUN 7 Creatinine 0.52 L Glucose 102 H Calcium 7.2 L Phosphorus 1.6 L D Magnesium 2.2 Triglycerides 80 Nutrition Assessment:: Please refer to the Notes section of the EMR for the 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 - Assessment Patient admitted on 11/04 for NV, abd pain. Found to have SBO secondary to adhesions/endometriosis. Patient states she had been in her usual state of health up until the date of admission. She had been eating well and denied any weight loss or poor dietary habits of the last month or two. Patient had exp lap w/ CARMEN on 11/10/18. Surgery anticipates bowel fxn to return slowly. Patient currently only has peripheral access and there is no order for central line at this time. IV team did evaluate peripheral access and stated OK for PPN. NG tube in place this AM, to LIS. Possible removal today. No surgical drains in place. If patient requires parenteral nutrition supplementation beyond 2-3 days, would suggest giving consideration to central IV access as PPN will not be able to provide goal calories and could create e-lyte abnormalities due to the large amounts of free water required to deliver calories. With NGT in place set to LIS, PPN will place her at risk for hyponatremia. - Plan For day #2 of PN administration, the following will be ordered: Macronutrients Amino acids 60 grams/day Dextrose 150 grams/day Lipids 25 grams/day 1000 kcal/day Unable to advance macronutrients any father d/t max osmolarity requirement of PPN. If/when additional macros needed will need to change access to central. Micronutrients Sodium chloride 100 mEq Sodium acetate 40 mEq Potassium phosphate 30 mMol (increase from yesterday's bag, patient also received 15mmol IV supplementation this morning) Potassium chloride 50 mEq Magnesium sulfate 12.18 mEq Calcium gluconate 4.65 mEq (new addition today) Multivitamins 10 mL Trace Elements 1 mL Remove insulin as steroids have been tapered Total volume 3000 mL to be infused over 24 hrs will provide 1000 kcal/day Final osmolarity 597 mOsm/L (maximum for PPN is 600 mOsm/L) Labs, as indicated, will be ordered per protocol Pharmacy will continue to follow and adjust parenteral nutrition orders on a daily basis. Thank you for allowing us to participate in the care of this patient.
[2018-11-12] MEDS ORDERED: CUSTOM PERIPHERAL PN IV SCH (16:00)
--- NOTE | 2018-11-12 17:50 | Hospitalist Progress Note ---
Date of Service November 12, 2018 Assessment & Plan (1) Small bowel obstruction: SBO Failed conservative measures S/P Diagnostic Laparoscopy, Open Bowel Resection, Ileocecectomy POD #2 SBO and endometriosis Pathology pending Appreciate Surgery help Pain control NG tube clamped Clear liquid diet Continue Cipro and flagyl (2) Abdominal pain: Recent hospitalization for SBO, abdominal pain resolved with conservative treatment. Suspicion for possible IBD. Taper Solu-medrol to Prednisone as able once tolerates PO (3) Hypokalemia: Resolved monitor DVT Px: Lovenox SQ Code Status Full Code Subjective Patient is seen and examine at bedside Doing better today Has some Abd pain + flatus, No BM yet Denies nausea, chest pain, SOB, dizziness No new complaints Physical Exam Vital Signs (Past 24 Hours): Last Vital Signs Temp 37.2 C 11/12/18 15:00 Pulse 85 11/12/18 15:00 Resp 17 11/12/18 15:00 BP 118/81 11/12/18 15:00 Pulse Ox 97 11/12/18 15:00 Physical Exam: Physical Exam: Vitals signs as noted above General Appearance:Obese, no apparent distress Head: normocephalic, Atraumatic Eyes: normal inspection, EOMI Neck: supple, Trachea midline Respiratory/Chest: Normal breath sounds, CTA Cardiovascular: S1, S2, No murmur Abdomen/GI:Soft, mild tender, Bowel sounds decreased, surgical site in dressing Extremities/Musculoskelatal:normal inspection, no edema Neurologic/Psych:AAOX3, grossly no focal neurological deficits Skin: normal color, warm Results & Data Laboratory Results Short CBC 11/12/18 Range/Units 07:15 WBC 14.17 H (4.8-10.8) K/uL Hgb 9.4 L (12.0-16.0) g/dL Hct 29.2 L (37-47) % Plt Count 235 (130-400) K/uL BMP 11/12/18 07:15 Sodium 140 Potassium 3.8 Chloride 106 Carbon Dioxide 31 BUN 7 Creatinine 0.52 L Glucose 102 H Calcium 7.2 L
[2018-11-12] MEDS: HYDROmorphone INJ 0.5 MG/0.5 ML SYR IV PRN (21:25)
[2018-11-13] MEDS: KETOROLAC 30 MG/ML VIAL IV PRN ×4 (01:30→20:30)
[2018-11-13] MEDS: metroNIDAZOLE 500 MG/100 ML BAG IV SCH ×3 (01:31→17:39)
[2018-11-13] MEDS: CIPROFLOXACIN 400 MG/200 ML BAG IV SCH ×2 (05:41→17:34)
[2018-11-13] MEDS: ACETAMINOPHEN 1,000 MG/100 ML VIAL IV SCH ×3 (05:41→22:27)
[2018-11-13 06:43] LABS: Eosinophils # (auto) 0.16 K/uL (0-0.5); Eosinophils % (auto) 1.4 %; Hemoglobin 8.6 g/dL (12.0-16.0); Immature Granulocytes # (auto) 0.11 K/uL (0.00-0.02); Lymphocytes # (auto) 2.15 K/uL (1.2-3.4); Lymphocytes % (auto) 18.9 %; Mean Corpuscular Hgb Conc 31.9 g/dL (32-36); Mean Corpuscular Volume 82.1 fL (80-100); Mean Platelet Volume 9.4 fL (7.4-10.4); Monocytes % (auto) 9.7 %; Neutrophils # (auto) 7.87 K/uL (1.4-6.5); Platelet Count 232 K/uL (130-400); RDW Coefficient of Variation 15.4 % (11.5-14.5); RDW Standard Deviation 45.5 fL (36.4-46.3); Red Blood Count 3.29 M/uL (4.2-5.4); White Blood Count 11.39 K/uL (4.8-10.8)
[2018-11-13 07:19] LABS: BUN Creatinine Ratio 14.1 (10-20); Calcium 7.2 mg/dl (8.5-10.1); Creatinine Clr Calc Pharmacy 199.4 ml/min; Est GFR (African American) 143.3; Est GFR (Non-African American) 123.6; Potassium 3.6 mmol/L (3.5-5.1)
[2018-11-13 07:22] LABS: Phosphorus 2.5 mg/dl (2.5-4.9)
[2018-11-13 07:33] LABS: RBC Morphology Unremarkable
[2018-11-13] MEDS: methylPREDNISolone 20 MG in SYRINGE 0 ML IV SCH (09:09)
[2018-11-13] MEDS: ENOXAPARIN INJ 40 MG/0.4 ML SYR SQ SCH (09:09)
--- NOTE | 2018-11-13 12:43 | Surgery Progress Note ---
Date of Service November 13, 2018 Assessment & Plan (1) Small bowel obstruction: pod 3 doing well will slowly advance diet potential d/c home tomorrow if she continues to do well. ok to stop PPN. d/w pharmacy Subjective pt feeling well. + several loose BM's. pain improving. Physical Exam Vital Signs (Past 24 Hours): Last Vital Signs Temp 36.7 C 11/13/18 07:32 Pulse 82 11/13/18 07:32 Resp 16 11/13/18 07:32 BP 116/72 11/13/18 07:32 Pulse Ox 100 11/13/18 07:32 Physical Exam: alert. nad abd: soft. incision looks good. expected tenderness
--- NOTE | 2018-11-13 16:41 | Hospitalist Progress Note ---
Date of Service November 13, 2018 Assessment & Plan (1) Small bowel obstruction: SBO Failed conservative measures S/P Diagnostic Laparoscopy, Open Bowel Resection, Ileocecectomy POD #3 SBO and endometriosis Pathology:Extensive Endometriosis, negative for malignancy, No ileitis or Colitis Appreciate Surgery help Pain control Advanced diet as tolerated Continue Cipro and flagyl Discontinue PPN (2) Abdominal pain: Recent hospitalization for SBO, abdominal pain resolved with conservative treatment. Pathology not consistent with IBD. Solu-medrol>> transition to Prednisone Taper Prednisone as able (3) Hypokalemia: Resolved monitor DVT Px: Lovenox SQ Code Status Full Code Subjective Patient is seen and examine at bedside Had BM today Tolerating diet Abd pain is controlled Denies nausea, chest pain, SOB, dizziness Physical Exam Vital Signs (Past 24 Hours): Last Vital Signs Temp 36.8 C 11/13/18 16:07 Pulse 91 H 11/13/18 16:07 Resp 18 11/13/18 16:07 BP 127/84 11/13/18 16:07 Pulse Ox 96 11/13/18 16:07 Physical Exam: Physical Exam: Vitals signs as noted above General Appearance:Obese, no apparent distress Head: normocephalic, Atraumatic Eyes: normal inspection, EOMI Neck: supple, Trachea midline Respiratory/Chest: Normal breath sounds, CTA Cardiovascular: S1, S2, No murmur Abdomen/GI:Soft, mild tender, Bowel sounds decreased, surgical site in dressing Extremities/Musculoskelatal:normal inspection, no edema Neurologic/Psych:AAOX3, grossly no focal neurological deficits Skin: normal color, warm Results & Data Laboratory Results Short CBC 11/13/18 Range/Units 06:24 WBC 11.39 H (4.8-10.8) K/uL Hgb 8.6 L (12.0-16.0) g/dL Hct 27.0 L (37-47) % Plt Count 232 (130-400) K/uL BMP 11/13/18 06:24 Sodium 134 L Potassium 3.6 Chloride 104 Carbon Dioxide 26 BUN 7 Creatinine 0.50 L Glucose 197 H Calcium 7.2 L
[2018-11-14] MEDS: metroNIDAZOLE 500 MG/100 ML BAG IV SCH ×2 (02:14→09:26)
[2018-11-14] MEDS: KETOROLAC 30 MG/ML VIAL IV PRN ×2 (03:19→09:23)
[2018-11-14] MEDS: ACETAMINOPHEN 1,000 MG/100 ML VIAL IV SCH (05:27)
[2018-11-14] MEDS: CIPROFLOXACIN 400 MG/200 ML BAG IV SCH (05:27)
[2018-11-14 06:06] LABS: Hematocrit (blood only) 27.5 % (37-47); Hemoglobin 8.7 g/dL (12.0-16.0); Mean Corpuscular Hgb Conc 31.6 g/dL (32-36); Mean Corpuscular Volume 82.8 fL (80-100); Mean Platelet Volume 9.1 fL (7.4-10.4); Platelet Count 273 K/uL (130-400); RDW Coefficient of Variation 15.4 % (11.5-14.5); RDW Standard Deviation 46.5 fL (36.4-46.3); Red Blood Count 3.32 M/uL (4.2-5.4); White Blood Count 10.78 K/uL (4.8-10.8)
[2018-11-14 06:43] LABS: BUN Creatinine Ratio 16.3 (10-20); Calcium 7.8 mg/dl (8.5-10.1); Creatinine Clr Calc Pharmacy 207.7 ml/min; Est GFR (African American) 145.2; Est GFR (Non-African American) 125.3; Potassium 3.6 mmol/L (3.5-5.1)
[2018-11-14] MEDS ORDERED: predniSONE 20 MG TAB PO SCH (09:00)
[2018-11-14] MEDS: ENOXAPARIN INJ 40 MG/0.4 ML SYR SQ SCH (09:24)
--- NOTE | 2018-11-14 12:51 | Hospitalist Progress Note ---
Date of Service November 14, 2018 Assessment & Plan (1) Small bowel obstruction: SBO Failed conservative measures S/P Diagnostic Laparoscopy, Open Bowel Resection, Ileocecectomy POD #4 SBO and endometriosis Pathology:Extensive Endometriosis, negative for malignancy, No ileitis or Colitis Appreciate Surgery help Pain control Advanced diet as tolerated Discontinue Cipro and flagyl Discontinued PPN Tolerating diet (2) Abdominal pain: Recent hospitalization for SBO, abdominal pain resolved with conservative treatment. Pathology not consistent with IBD. Solu-medrol>> transitioned to Prednisone Continue Prednisone Taper (3) Hypokalemia: Resolved monitor DVT Px: Lovenox SQ Code Status Full Code Subjective Patient is seen and examine at bedside Doing much better today Had BM Abd Pain is improved Tolerated diet Denies nausea, chest pain, SOB, dizziness Discussed with Surgery today Physical Exam Vital Signs (Past 24 Hours): Last Vital Signs Temp 36.8 C 11/14/18 07:30 Pulse 76 11/14/18 07:30 Resp 16 11/14/18 07:30 BP 125/86 11/14/18 07:30 Pulse Ox 99 11/14/18 07:30 Physical Exam: Physical Exam: Vitals signs as noted above General Appearance:Obese, no apparent distress Head: normocephalic, Atraumatic Eyes: normal inspection, EOMI Neck: supple, Trachea midline Respiratory/Chest: Normal breath sounds, CTA Cardiovascular: S1, S2, No murmur Abdomen/GI:Soft, mild tender, Bowel sounds decreased, surgical site in clips Extremities/Musculoskelatal:normal inspection, no edema Neurologic/Psych:AAOX3, grossly no focal neurological deficits Skin: normal color, warm Results & Data Laboratory Results Short CBC 11/14/18 Range/Units 05:48 WBC 10.78 (4.8-10.8) K/uL Hgb 8.7 L (12.0-16.0) g/dL Hct 27.5 L (37-47) % Plt Count 273 (130-400) K/uL BMP 11/14/18 05:48 Sodium 141 D Potassium 3.6 Chloride 110 H Carbon Dioxide 27 BUN 8 Creatinine 0.48 L Glucose 94 Calcium 7.8 L
--- NOTE | 2018-11-14 12:58 | Discharge Summary ---
Date of Service November 14, 2018 Admission HPI Per Admitting Provider Pt is 38 y/o F with PMH daily loose stools for past year presented to ER with c/o abdominal pain started last night. Pt with recent hospital admission on 10/19/18-10/23/18 for SBO and with suspicion for possible IBD. SBO resolved conservative treatment and pt was placed on cipro until GI follow up and flagyl x 14 days. Was also on solumedrol which was transitioned to prednisone. Pt was schedule for outpatient colonoscopy on 11/11/18. States since discharge has been having intermittent cramping abdominal pain. Last night started with increased abdominal pain, nausea and vomiting x 4 times, last being this morning around 10am. States was having loose BMs twice daily and since discharge having BM every couple of days and still loose. Denies fever, diaphoresis, hematemesis, melena, hematochezia, SMITH, dizziness, syncope, vision changes, neck pain, CP, SOB, orthopnea, palpitations, cough, sore throat, choking, otalgia, rhinorrhea, paresthesias, weakness, extremity weakness, extremity edema, rashes, urinary symptoms. Admission Exam Per Admitting Provider General: no distress, obese Head: normocephalic, atraumatic Eyes: EOM's intact, conjunctiva non-injected, anicteric ENT: normal inspection external ears, nose, mucous membranes moist Neck: supple, trachea midline Lungs: clear, no respiratory distress, no wheezing/rhonchi/rales CV: RRR, no murmur, no pretibial edema Abd: hypoactive BS, soft, slight diffuse tenderness to palpation Ext: no cyanosis, no calf tenderness Neuro: A&O x 3, no focal deficits noted, normal affect Skin: warm, dry Principal Diagnosis Discharge Information Discharge Diagnosis Small Bowel Obstruction S/P Ileocecetomy Discharge Goals Decrease discomfort,Improve disease control, Improve function Discharge Activity Limitations Per instructions/follow-up Discharge Data Allergies Allergy/AdvReac Type Severity Reaction Status Date / Time No Known Allergies Allergy Verified 11/04/18 11:43 Consultations 11/04/18 13:11 ED Decision to Admit Stat 11/04/18 16:26 Consult Gastroenterology Routine Consult General Surgery Routine Procedures Performed Operation Date: 11/10/18 11:00 Actual Procedures p Open Bowel Resection, Ileocecectomy(Not Applicable) - Shlomo Lomeli DO, FACS s Diagnostic Laparoscopy(Not Applicable) - Shlomo Lomeli DO, FACS CT ABD: 1. High-grade small bowel obstruction with transition point at the terminal ileum. These findings appear similar to comparison study from 10/19/2018 and 10/20/2018. Again, there is a focal area of soft tissue prominence about the terminal ileum which measures up to 4.0 cm suggestive of tethered small bowel loops with underlying adhesions versus underlying soft tissue mass. If not early conducted, a follow-up colonoscopy is again recommended. 2. Mild reactive interloop edema with trace free fluid about the lower abdomen and pelvis. 3. No pneumatosis or pneumoperitoneum. 4. Nonvisualization of the appendix. 5. Left ovarian cyst, 3.9 x 3.4 cm. 6. Additional findings as above. Ordered Studies 11/04/18 15:24 CT abd pelvis IV con only Urgent Hospital Course (1) Small bowel obstruction: SBO Failed conservative measures S/P Diagnostic Laparoscopy, Open Bowel Resection, Ileocecectomy POD #4 SBO and endometriosis Pathology:Extensive Endometriosis, negative for malignancy, No ileitis or Colitis Appreciate Surgery help Pain control Advanced diet as tolerated Discontinue Cipro and flagyl Discontinued PPN Tolerating diet (2) Abdominal pain: Recent hospitalization for SBO, abdominal pain resolved with conservative treatment. Pathology not consistent with IBD. Solu-medrol>> transitioned to Prednisone Continue Prednisone Taper (3) Hypokalemia: Resolved monitor DVT Px: Lovenox SQ Code Status Full Code Total Time Total Time Spent Total Time Spent (In Minutes): 39 minutes Total Time Includes: Examination of the Patient, Discharge Planning, Medication Reconciliation, Communication With Other Providers and Other Discharge Plan Discharge Items Patient Disposition: Home - Self-Care Reason For Visit: SBO Discharge Diagnosis: Small Bowel Obstruction S/P Ileocecetomy Discharge Goals: Decrease discomfort, Improve disease control and Improve function Activity: Per 'Additional Instructions' section Lifting: No more than 10 pounds Bathing: No limitations Exercise/Sports: Gradually increase as tolerated Driving/Machine Use Comment: when pain free Non-emergency contact: Primary Care Provider and Surgeon Call non-emergency contact if: you have any medication questions, your symptoms worsen, your pain is not controlled, your pain is worsening, your pain is unusual for you, your pain is concerning for you, you have a fever, your temperature is above 101.5, your wound has increased redness, your wound has increased drainage and your wound pain has increased Follow-up/Referrals: Shlomo Lomeli DO, FACS [Physician] - (Call to make an appt in 1 week) Lorenzo Ortiz MD [Primary Care Provider] - Diet: Low Fiber Addtl Provider Instructions: Follow up with your PCP in 1 week as advised Follow up with your Surgeon / as advised by your Surgeon Complete the Prednisone Taper Course as advised Seek immediate medical attention if your symptoms reoccur or worsen Prednisone Taper Course: Start taking Prednisone 40mg for 3 days, then 30mg for 3 days, then 20mg for 3 days, then 10mg for 3 days and STOP Prescriptions: New hydrocodone-acetaminophen [[place]] 5-325 mg tablet 1 - 2 tab PO Q4H PRN (Reason: pain) Qty: 15 RF: 0 prednisone 10 mg tablet 10 mg PO UD 12 Days Qty: 12 RF: 0 Continued multivitamin Tablet 1 tab PO QAM RF: 0 acetaminophen [Tylenol Extra Strength] 500 mg Tablet 1,000 mg PO Q6H PRN (Reason: Pain) RF: 0 Discontinued ciprofloxacin HCl 500 mg tablet 500 mg PO BID Qty: 30 RF: 0 metronidazole [Flagyl] 500 mg tablet 500 mg PO BID Qty: 10 RF: 0 prednisone 20 mg tablet 80 mg PO QAM RF: 0 Stand-Alone Forms: Call Back Authorization, [facility], Opioid Pain Management Discharge Orders: Discharge Order (Routine); Ordered 11/14/18 Ordered By: Wallace Matthews Admission Data Admit Date/Time: 11/04/18 13:49 Attending Provider: Wallace Matthews Admit Provider: Wallace Matthews Primary Care Provider: Lorenzo Ortiz Other Providers: Ramone Vasquez ; Roberto Cottrell ; Ale Farr ; Rio Mart ; Jose King ; Bruce Garcia Jr ; Abe Gusman ; William Mendoza ; Nusrat Little ; Shlomo Lomeli ; Juanpablo Garcia Jeffrey L ; Wallace Matthews Service: Surgical Services Other Interventions: Discharge Summary Assessment (RN) Last Done: 11/14/18 13:20 Pending Studies at Discharge: No DC Date/Time DO NOT enter until pt leaves facility: 11/14/18 13:51
== END 2018-11-14 13:51 | disposition home or self-care (01) | DRG 331 ==
LOC: ED 10:50 → SUATTDRO 13:49 → 3W 13:49